=== PATIENT | male | born 1955 | race Caucasian/White ===

== ENCOUNTER 2017-11-08 21:10 | Inpatient (IN) ==
[2017-11-08] MEDS ORDERED: methylPREDNISolone 125 MG/2 ML VIAL IVP ONE (22:37)
[2017-11-08] MEDS ORDERED: Ipratropium/Albuterol Neb 3 ML IH ONE (22:38)
[2017-11-08] MEDS ORDERED: Naloxone 0.4 MG/ML INJ IVP PRN (22:39)
[2017-11-08] MEDS ORDERED: Ipratropium/Albuterol Neb 3 ML IH PRN (22:43)
[2017-11-08] MEDS ORDERED: Azithromycin 500 MG in D5% in Water 250 ML IVPB SCH (23:00)
[2017-11-08] MEDS: 0.9 % Sodium Chloride 1,000 ML IVC SCH (23:15)
[2017-11-08 23:29] LABS: BUN/Creatinine Ratio 19 (6-26); Blood Urea Nitrogen 10 mg/dL (8-23); Calcium 8.8 mg/dL (8.6-10.3); Carbon Dioxide 36 mEq/L (23-29); Chloride 82 mEq/L (98-107); Glucose 153 mg/dL (70-105); Osmolality,Calculated 258 (280-300); Potassium 3.9 mEq/L (3.5-5.1); Sodium 123 mEq/L (136-145); eGFR For African Americans > 60 (> 60); eGFR For Non-African Americans > 60 (> 60)
[2017-11-09] MEDS: methylPREDNISolone 125 MG/2 ML VIAL IVP SCH ×4 (00:03→18:29)
[2017-11-09] MEDS ORDERED: Lacri-Lube 3.5 GM TUBE BOTH EYES PRN (01:00)
--- NOTE | 2017-11-09 01:06 | Internal Med History&Physical ---
Date of Encounter: 11/08/17 Time of Encounter: 22:00 Assessment and Plan (1) Community acquired pneumonia Current visit: Yes Status: Acute CXR shows possible pneumonia. Pt has cough and increased SOB - Will treat him with azithromycin and rocephin Qualifiers: Laterality: unspecified laterality Qualified Code(s): J18.9 - Pneumonia, unspecified organism (2) COPD exacerbation Current visit: Yes Status: Acute Severe wheezes, on BiPAP - Cont cardiac and oxymetry monitoring - Solumendral 125 mg, Duoneb 9ml, MgSO4 2 g iv - Cont BiPAP. - High possibility of intubation (3) Hyponatremia Current visit: Yes Status: Acute Sodium 122. Will start 0.9 NS 100ml/hr. Closely monitor BMP. Goal of correction is < 8mEq in first 24 hours. (4) DVT prophylaxis Current visit: Yes Status: Acute Heparin SC Internal Medicine - H&P: HPI Chief complaint: SOB Admitted From: Intrahospital Transfer Plans for Post Hospital Care: Home History of present illness: Mr. Patrick is a 62 year old male with Hx of COPD, laryngeal cancer s/p radiation in 2013 transferred from [place] hospital for increased SOB and potential intubation. Pt has increased SOB and was treated as outpatient with doxycyclin and prednisone. His symptoms has improved as he has finished medication on Saturday. His symptoms got worse again since yesterday, with cough with clear to yellowish sputum. Pt denies fever. He went to [place] for SOB and CXR shows possible pneumonia. Pt has severe wheezes and labor breathing. His Flu test negative in [place]. Pt was placed on BiPAP. He was transferred to our hospital because he is considered possible intubation as labor breathing getting worse. Past Med Surg Social Fam HX - Past Medical History Medical history: COPD, peripheral artery disease Psychiatric history: no psych history - Social History Smoking Status: Current every day smoker Packs per day: 1 Smokeless Tobacco Status: No Alcohol use: none Drug use: none - Family History Mother History Unknown: Yes Internal Medicine - H&P: Meds Benzocaine/Menthol Pako [Cepacol Sore Throat Lozenge] 1 each MM Q2H PRN #20 lozenge 07/20/17 [Rx] Loratadine [Claritin] 10 mg PO DAILY #20 tablet 07/20/17 [Rx] predniSONE [Prednisone] 50 mg PO DAILY #5 tablet 07/20/17 [Rx] 3 Allergy/AdvReac Type Severity Reaction Status Date / Time No Known Allergies Allergy Verified 07/20/17 19:29 All Systems PM: A 10-system review of systems was performed and is negative for pertinent findings except as documented above in the HPI. - Constitutional Vitals: Temp Pulse Resp BP Pulse Ox 97.5 F L 80 12 126/96 98 11/08/17 22:06 11/09/17 00:00 11/09/17 01:03 11/09/17 01:03 11/09/17 01:03 General appearance: Present: A&O X 2, severe distress, answers questions appropriately - Head Head exam: Present: atraumatic, normocephalic - Eye Eye exam: Present: PERRL, conjuntiva pink, sclera anicteric Pupils: Present: PERRL - Neck Neck exam general surgery: Present: supple, trachea midline. Absent: lymphadenopathy - Respiratory Respiratory exam: Present: CTAB, wheezes (B/L diffused inspiratory and expiratory wheezes. Air move is very poor). Absent: accessory muscle use, rales , rhonchi - Cardiovascular Cardiovascular exam: Present: RRR, +S1, +S2. Absent: diastolic murmur, gallop, rubs, systolic murmur - GI/Abdominal GI/Abdominal exam: Present: normal bowel sounds, soft, no peritoneal signs. Absent: distended, tenderness - Extremities Exam Extremities exam: Present: warm, radial pulses palpable and symmetrical. Absent : calf tenderness, cyanotic, pedal edema - Neurological Exam Neurological exam: Present: CN II-XII intact, oriented X3, no focal deficits. Absent: pronater drift, facial droop, speech deficit - Skin Skin exam: Present: dry, intact Internal Med - H&P Results - Labs CBC & Chem 7: 11/08/17 23:00 Labs: BMP 11/08/17 23:00 Sodium 123 L Potassium 3.9 Chloride 82 L Carbon Dioxide 36 H BUN 10 Creatinine 0.54 L Glucose 153 H Calcium 8.8 - EKG Data -: EKG Interpreted by Myself EKG shows normal: sinus rhythm Rate: normal
--- NOTE | 2017-11-09 01:09 | Event Note ---
Date of Encounter: 11/09/17 Time of Encounter: 00:30 Pt has increased labor breathing and AMS. Decision is made to intubate pt. Pt has difficulr airway. Intubation was successful by TECHNICAL WRITING LEAD/MGR on third trial. B/L breath sound well. will order CXR to confirm the position of ETT. Place pt on sedation with versed and fentanyl drip. Consult critical care.
[2017-11-09] MEDS ORDERED: 0.9 % Sodium Chloride 500 ML ONE (01:49)
[2017-11-09] MEDS ORDERED: 0.9 % Sodium Chloride 500 ML IVC ONE ×2 (01:50→02:02)
[2017-11-09 02:25] LABS: ABG Base Excess 9 mEq/L (-2 to 3); ABG HCO3 36 mEq/L (21-27); ABG Oxygen Saturation 100 % (95-98); ABG PCO2 61 mmHg (35-45); ABG PH 7.38 pH Units (7.32-7.45); ABG PO2 472 mmHg (85-104); ABG TCO2 38 mEq/L (20-26); Blood Gas Modality VC; Blood Gas PEEP 5 cm H2O; Blood Gas Respiration Rate 12; Blood Gas VT 500 cc
[2017-11-09 03:23] LABS: Hematocrit 34.6 % (37.5-50.1); Hemoglobin 11.7 g/dL (12.9-16.9); Immature Granulocytes % 0.6 % (0-4); Lymphocytes # 0.2 K/mcL (0.6-4.6); Lymphocytes % 2.3 %; Mean Corpuscular HGB Conc 33.8 g/dL (31.6-35.5); Mean Corpuscular Hemoglobin 27.2 pg (28.0-33.3); Mean Corpuscular Volume 80.5 fL (83.0-100.0); Mean Platelet Volume 9.4 fL (9.4-12.4); Monocytes # 0.1 K/mcL (0.0-1.3); Monocytes % 0.7 %; Neutrophils # 7.8 K/mcL (1.6-8.9); Platelet Count 251 K/mcL (140-400); Red Cell Distribution Width 15.1 % (11.5-14.5); Segmented Neutrophils % 96.4 %
[2017-11-09 03:38] LABS: BUN/Creatinine Ratio 17 (6-26); Blood Urea Nitrogen 10 mg/dL (8-23); Carbon Dioxide 34 mEq/L (23-29); Chloride 85 mEq/L (98-107); Glucose 195 mg/dL (70-105); Osmolality,Calculated 260 (280-300); Potassium 3.6 mEq/L (3.5-5.1); Sodium 123 mEq/L (136-145); eGFR For African Americans > 60 (> 60); eGFR For Non-African Americans > 60 (> 60)
[2017-11-09] MEDS: Ipratropium/Albuterol Neb 3 ML IH SCH ×4 (04:19→21:50)
[2017-11-09 04:29] LABS: Platelet Estimate Normal (Normal)
--- NOTE | 2017-11-09 04:41 | Event Note ---
Date of Encounter: 11/09/17 Time of Encounter: 04:00 Pt was found not respond properly (not follow command to open eyes) even w/o sedation. He was found unequal pupils (Rt side enlarged and left side needle like). Pt move 4 limbs on stimulation but not follow commands. Concern for hemorrhage/cerebral edema. Stat CT head done, result is negative. Called neurology consult Dr oPnce and discussed with him on phone. As CT head negative, he recommend continue supportive treatment and treat pneumonia and COPD. No further urgent test at this point. Will cont current treatment and closely monitor pt.
[2017-11-09 04:58] LABS: ABG Base Excess 11 mEq/L (-2 to 3); ABG HCO3 36 mEq/L (21-27); ABG Oxygen Saturation 93 % (95-98); ABG PCO2 54 mmHg (35-45); ABG PH 7.44 pH Units (7.32-7.45); ABG PO2 65 mmHg (85-104); ABG TCO2 38 mEq/L (20-26); Blood Gas Modality VC; Blood Gas PEEP 5 cm H2O; Blood Gas Respiration Rate 12; Blood Gas VT 500 cc
[2017-11-09] MEDS: Lacri-Lube 3.5 GM TUBE BOTH EYES SCH ×5 (05:13→21:38)
[2017-11-09] MEDS: *HR* Heparin 5,000 UNIT/ML VIAL SQ SCH ×2 (05:16→18:27)
[2017-11-09] MEDS: cefTRIAXone 1,000 MG in Water for inj. (sterile) 10 ML IVP SCH (09:04)
--- NOTE | 2017-11-09 09:04 | Neurology - Consult Note ---
Date of Encounter: 11/09/17 Time of Encounter: 08:59 Assessment and Plan (1) Anisocoria Current Visit: Yes Status: Acute Patient is a 62 years old man with worsening COPD exacerbation and possible pneumonia who developed significantly unequal pupils while being treated for COPD exacerbation prior to mechanical ventilation. This was also associated with reduced level of consciousness but no focal weakness reported. Initial CT of head was reported no acute intracranial abnormality. Currently, the patient' s mental status improved and he is able to follow verbal commands and there is no focal weakness. The pupil asymmetry is still present and the size difference is greater than 2mm. SPECIAL PROCEDURES NURSE pathology such as brain stem infarct, cerebral aneurysm , carotid artery disease can cause an equal pupils acutely, in this case, brain stem infarct is unlikely. Patient's is unsure of any preexisting eye condition that can be responsible. Will recommend CTA of brain and neck to assess possibility of cerebral aneurysm or carotid artery disease, at time physiological anisocoria can be amplified by provoking medical conditions and/or medication effects. Please continue medical and supportive care. History of Present Illness Chief complaint: unequal pupiles and reduced level of consciousness. HPI: Mr. Patrick is a 62 year old male with COPD exacerbation, possible community pneumonia, who was transferred from [facility] due to worsening SOB requiring mechanical ventilation. Neurology was consulted due to the patient being found to have unequal pupils right side larger than the left side. Patient also developed reduced level of consciousness but was able to move all extremities per requesting physician. The right pupil is around 5-6mm in diameter and left side is pinpoint like. Initial CT of head was read as negative for any acute changes. MRI of brain done last month showed no acute intracranial abnormality. AT the time of this interview, his mental status appears improved. This was also confirmed by the ICU team. Patient was sleeping and then after stimulation he woke up and is able to follow commands. No focal weakness noted. Hand special education science teacher are equal. The both eyes are reactive to light, right 5mm and left 3mm in sizes Past Med Surg Social Fam HX - Past Medical History Medical history: COPD, peripheral artery disease Psychiatric history: no psych history - Social History Smoking Status: Current every day smoker Packs per day: 1 Smokeless Tobacco Status: No Alcohol use: none Drug use: none - Family History Mother History Unknown: Yes Medications and Allergies Benzocaine/Menthol Pako [Cepacol Sore Throat Lozenge] 1 each MM Q2H PRN #20 lozenge 07/20/17 [Rx] Loratadine [Claritin] 10 mg PO DAILY #20 tablet 07/20/17 [Rx] predniSONE [Prednisone] 50 mg PO DAILY #5 tablet 07/20/17 [Rx] 3 Allergy/AdvReac Type Severity Reaction Status Date / Time No Known Allergies Allergy Verified 07/20/17 19:29 All Systems: A 10-system review of systems was performed and is negative for pertinent findings except as documented above in the HPI. Physical Examination - Vital Signs Vital Signs: Initial Vital Signs Temp Pulse Resp BP Pulse Ox 97.5 F L 86 32 206/118 94 11/08/17 22:06 11/08/17 22:06 11/08/17 22:06 11/08/17 22:06 11/08/17 22:06 - Constitutional General appearance: chronically ill - Neurologic Sensorimotor examination: other (Grossly intact) Detailed motor examination: grossly full strength in all extremities (After patient woke up, he was able to squeeze hands bilaterally, equal power. Is able to lift both legs off the bed. strength at least 4+/5) Detailed sensory examination: other (Grossly intact) Posture: other (NOne) Reflexes: Biceps: 2+, Triceps: 2+, Brachioradialis: 2+, Patella: 2+, Achilles: 2 + Mental Status Examination: drowsy, opens eyes to voice, opens eyes to noxious stimulation, makes eye contact, follows simple commands Cranial nerve examination: PERRL (right pupile 5mm and left side 3mm in diameter , both reactive to light stimulation. ), EOMI (No gross defect. ), visual dickson intact (uanble to assess due to presence of reduced level of consciousness), corneal reflexes brisk symmetrically, sensory to face intact ( intact), mastication intact (Intact), no facial asymmetry is present, no dysarthria (Unable to assess speech), soft palate elevates bilaterally upon phonation (Unable to assess), gag reflex intact, flexes SCM and trapezius muscles symmetrically with full power (Unable to assess), tongue protrudes midline (Unable to assess) Results - Laboratory Findings CBC and BMP: 11/09/17 03:12 11/09/17 03:12 Abnormal lab findings: Abnormal lab results Hgb 11.7 g/dL (12.9-16.9) L 11/09/17 03:12 Hct 34.6 % (37.5-50.1) L 11/09/17 03:12 MCV 80.5 fL (83.0-100.0) L 11/09/17 03:12 MCH 27.2 pg (28.0-33.3) L 11/09/17 03:12 RDW 15.1 % (11.5-14.5) H 11/09/17 03:12 Lymphocytes # 0.2 K/mcL (0.6-4.6) L 11/09/17 03:12 ABG pCO2 54 mmHg (35-45) H 11/09/17 04:55 ABG pO2 65 mmHg (85-104) L D 11/09/17 04:55 ABG HCO3 36 mEq/L (21-27) H 11/09/17 04:55 ABG Total CO2 38 mEq/L (20-26) H 11/09/17 04:55 ABG O2 Saturation 93 % (95-98) L 11/09/17 04:55 ABG Base Excess 11 mEq/L (-2 to 3) H 11/09/17 04:55 Sodium 123 mEq/L (136-145) L 11/09/17 03:12 Chloride 85 mEq/L (98-107) L 11/09/17 03:12 Carbon Dioxide 34 mEq/L (23-29) H 11/09/17 03:12 Creatinine 0.58 mg/dL (0.70-1.30) L 11/09/17 03:12 Glucose 195 mg/dL (70-105) H 11/09/17 03:12 Calculated Osmolality 260 (280-300) L 11/09/17 03:12 Calcium 8.0 mg/dL (8.6-10.3) L 11/09/17 03:12 Consult Discharge Plan - Plan Referrals: Rigo Marte [Primary Care Provider] -
[2017-11-09] MEDS: Chlorhexidine Rinse 15 ML MOUTHWASH MM SCH ×2 (09:05→20:00)
[2017-11-09] MEDS: Dexamethasone 10 MG/ML VIAL IVP SCH (09:05)
[2017-11-09] MEDS: Pantoprazole 40 MG VIAL IVP SCH (09:05)
[2017-11-09] MEDS: 0.9 % Sodium Chloride 1,000 ML IVC SCH ×3 (09:18→22:15)
[2017-11-09 09:37] LABS: Adenovirus Not Detected (Not Detect); Bordetella Pertussis Not Detected (Not Detect); Chlamydophila pneumoniae Not Detected (Not Detect); Coronavirus 229E Not Detected (Not Detect); Coronavirus HKU1 Not Detected (Not Detect); Coronavirus NL63 Not Detected (Not Detect); Coronavirus OC43 Not Detected (Not Detect); Human Metapneumovirus Not Detected (Not Detect); Human Rhinovirus/Enterovirus Not Detected (Not Detect); Influenza A Subtype 2009 H1 Not Detected (Not Detect); Influenza A Untypeable Not Detected (Not Detect); Influenza B Not Detected (Not Detect); Mycoplasma pneumoniae Not Detected (Not Detect); Parainfluenza Virus 1 Not Detected (Not Detect); Parainfluenza Virus 2 Not Detected (Not Detect); Parainfluenza Virus 3 Not Detected (Not Detect); Parainfluenza Virus 4 Not Detected (Not Detect); Respiratory Syncytial Virus Not Detected (Not Detect)
[2017-11-09 12:20] LABS: BUN/Creatinine Ratio 17 (6-26); Blood Urea Nitrogen 8 mg/dL (8-23); Calcium 8.2 mg/dL (8.6-10.3); Carbon Dioxide 34 mEq/L (23-29); Chloride 90 mEq/L (98-107); Glucose 117 mg/dL (70-105); Osmolality,Calculated 265 (280-300); Potassium 3.8 mEq/L (3.5-5.1); Sodium 128 mEq/L (136-145); eGFR For African Americans > 60 (> 60); eGFR For Non-African Americans > 60 (> 60)
[2017-11-09] MEDS: Insulin LISPRO 300 UNITS/3 ML VIAL SQ SCH ×3 (12:59→20:00)
--- NOTE | 2017-11-09 13:23 | Pulmonology Consult Note ---
Date of Encounter: 11/10/17 Time of Encounter: 07:00 Assessment and Plan (1) Acute and chronic respiratory failure Current Visit: Yes Status: Acute Patient has Acute on chronic hypercapnic respiratory secondary to COPD exacerbation complicated by suspected pneumonia Qualifiers: Respiratory failure complication: hypoxia and hypercapnia Qualified Code(s) : J96.21 - Acute and chronic respiratory failure with hypoxia; J96.22 - Acute and chronic respiratory failure with hypercapnia; J96.22 - Acute and chronic respiratory failure with hypercapnia; J96.22 - Acute and chronic respiratory failure with hypercapnia (2) COPD exacerbation Current Visit: Yes Status: Acute Patient has COPD to continue Bronchodilators and steroids . To continue mechanical ventilation adjusted TV and RR low tidal around 7 ml gas exchange is adequate will need to be extubated to BIPAP when ready . Patient had traumatic intubation will give 6 doses of Dexamethasone will need to check for air leak before extubation high chance of post extubation stridor. (3) Anisocoria Current Visit: Yes Status: Acute Patient has unequal pupil with no focal exam concern for aneurysmal bleed but CTA of Neck and Brain didnt show any evidence of aneurysm , has some carotid artery stenosis . Appreciate neurology consult . (4) Community acquired pneumonia Current Visit: Yes Status: Acute To continue ceftriaxone and levofloxacin to follow sputum cultures and blood cultures Qualifiers: Laterality: unspecified laterality Qualified Code(s): J18.9 - Pneumonia, unspecified organism (5) Hyponatremia Current Visit: Yes Status: Acute Most likely volume depletion improved with fluids (6) DVT prophylaxis Current Visit: Yes Status: Acute To continue Heparin History of Present Illness Consult date: 11/09/17 Requesting physician: Golden Izaguirre Reason for consult: COPD, pneumonia Chief complaint: Shortness of breadth History of present illness: 62 year old male with past medical history of COPD usually gets his care at the [facility] was found to have increased shortness of breadth and cough , sputum production according to chart review he didnt complain of any flu like symptoms , denied any pedal edema was admitted acute on chronic hypercapnic respiratory failure first tried on BIPAP at the [facility] was transferred [facility] for need of intubation and mechanical ventilation initially did well on BIPAP has to be urgently intubated had a difficult intubation patient has h/o laryngeal Ca with ? radiation therapy it was traumatic intubation sucessful on the third attempt . Pulmonary was consulted to manage his intensive care needs . Past Med Surg Social Fam HX - Past Medical History Medical history: COPD, peripheral artery disease Psychiatric history: no psych history - Social History Smoking Status: Current every day smoker Packs per day: 1 Smokeless Tobacco Status: No Alcohol use: none Drug use: none - Family History Mother History Unknown: Yes Medications and Allergies Albuterol Neb [Proventil Neb] 2.5 mg IH Q4HR 11/09/17 [History] Aspirin Enteric Coated [Aspirin EC] 81 mg PO DAILY 11/09/17 [History] Cilostazol [Pletal] 100 mg PO BID 11/09/17 [History] Esomeprazole Magnesium [Nexium] 20 mg PO DAILY 11/09/17 [History] Fluticasone/Salmeterol [Advair 250-50 Diskus] 2 puff IH BID 11/09/17 [History] Levothyroxine [Synthroid] 100 mcg PO DAILY 11/09/17 [History] Tiotropium [place] [Spiriva Respimat] 1 puff IH DAILY 11/09/17 [History] 3 Allergy/AdvReac Type Severity Reaction Status Date / Time No Known Allergies Allergy Verified 07/20/17 19:29 ROS unobtainable: due to endotracheal tube All Systems: A 10-system review of systems was performed and is negative for pertinent findings except as documented above in the HPI. Physical Examination Vital Signs: Vital Signs, Last 4 Hours Temp Pulse Resp BP Pulse Ox 11/09/17 12:40 86 11/09/17 12:00 97.7 F 74 12 122/78 98 11/09/17 11:30 97.7 F 11/09/17 11:00 16 134/86 97 11/09/17 10:30 77 13 134/86 97 11/09/17 09:30 76 12 101/73 96 Auscultation: bilateral: wheezes non-focal exam, unable to assess due to mental status, other (he follows commands barely his pupil unequal and reactive ) Ventilator Settings Ventilator Settings: Ventilator Settings, Last 8 Hours Ventilator Mode VC+ Ventilator Mode VC+ Ventilator Mode VC+ Ventilator Mode VC+ Ventilator Mode VC+ Ventilator Mode VC+ Ventilator Mode VC+ Ventilator Mode VC+ Ventilator Mode VC+ Ventilator Mode VC+ Ventilator Mode VC+ Ventilator Tidal Volume 500 Setting Ventilator Tidal Volume 500 Setting Ventilator Tidal Volume 500 Setting Ventilator Tidal Volume 500 Setting Ventilator Tidal Volume 500 Setting Ventilator Tidal Volume 500 Setting Ventilator Tidal Volume 500 Setting Ventilator Tidal Volume 500 Setting Ventilator Tidal Volume 500 Setting Ventilator Tidal Volume 500 Setting Ventilator Tidal Volume 500 Setting Ventilator Respiratory Rate 12 Setting Ventilator Respiratory Rate 12 Setting Ventilator Respiratory Rate 12 Setting Ventilator Respiratory Rate 12 Setting Ventilator Respiratory Rate 12 Setting Ventilator Respiratory Rate 12 Setting Ventilator Respiratory Rate 12 Setting Ventilator Respiratory Rate 12 Setting Ventilator Respiratory Rate 12 Setting Ventilator Respiratory Rate 12 Setting Ventilator Respiratory Rate 12 Setting Actual Respiratory Rate 12 Actual Respiratory Rate 16 Actual Respiratory Rate 12 Actual Respiratory Rate 12 Actual Respiratory Rate 12 Actual Respiratory Rate 12 Actual Respiratory Rate 12 Actual Respiratory Rate 12 Actual Respiratory Rate 12 Actual Respiratory Rate 12 Actual Respiratory Rate 12 Positive End Expiratory 5 Pressure Positive End Expiratory 5 Pressure Positive End Expiratory 5 Pressure Positive End Expiratory 5 Pressure Positive End Expiratory 5 Pressure Positive End Expiratory 5 Pressure Positive End Expiratory 5 Pressure Positive End Expiratory 5 Pressure Positive End Expiratory 5 Pressure Positive End Expiratory 5 Pressure Positive End Expiratory 5 Pressure Peak Inspiratory Airway 19 Pressure Peak Inspiratory Airway 21 Pressure Peak Inspiratory Airway 20 Pressure Peak Inspiratory Airway 20 Pressure Peak Inspiratory Airway 19 Pressure Peak Inspiratory Airway 19 Pressure Peak Inspiratory Airway 20 Pressure Peak Inspiratory Airway 21 Pressure Peak Inspiratory Airway 21 Pressure Results - Laboratory Findings CBC and BMP: 11/10/17 02:38 11/10/17 02:38 ABG ABG pH 7.44 pH Units (7.32-7.45) 11/09/17 04:55 ABG pCO2 54 mmHg (35-45) H 11/09/17 04:55 ABG pO2 65 mmHg (85-104) L D 11/09/17 04:55 ABG O2 Saturation 93 % (95-98) L 11/09/17 04:55 Abnormal lab findings: Abnormal lab results Hgb 11.7 g/dL (12.9-16.9) L 11/09/17 03:12 Hct 34.6 % (37.5-50.1) L 11/09/17 03:12 MCV 80.5 fL (83.0-100.0) L 11/09/17 03:12 MCH 27.2 pg (28.0-33.3) L 11/09/17 03:12 RDW 15.1 % (11.5-14.5) H 11/09/17 03:12 Lymphocytes # 0.2 K/mcL (0.6-4.6) L 11/09/17 03:12 ABG pCO2 54 mmHg (35-45) H 11/09/17 04:55 ABG pO2 65 mmHg (85-104) L D 11/09/17 04:55 ABG HCO3 36 mEq/L (21-27) H 11/09/17 04:55 ABG Total CO2 38 mEq/L (20-26) H 11/09/17 04:55 ABG O2 Saturation 93 % (95-98) L 11/09/17 04:55 ABG Base Excess 11 mEq/L (-2 to 3) H 11/09/17 04:55 Sodium 128 mEq/L (136-145) L 11/09/17 11:36 Chloride 90 mEq/L (98-107) L 11/09/17 11:36 Carbon Dioxide 34 mEq/L (23-29) H 11/09/17 11:36 Creatinine 0.46 mg/dL (0.70-1.30) L 11/09/17 11:36 Glucose 117 mg/dL (70-105) H 11/09/17 11:36 Calculated Osmolality 265 (280-300) L 11/09/17 11:36 Calcium 8.2 mg/dL (8.6-10.3) L 11/09/17 11:36 - Clinical Findings Intake & Output: Intake & Output 11/08/17 11/09/17 11/09/17 23:59 07:59 15:59 Intake Total 0 / 0 800 / 800 1010 / 1010 Output Total 0 / 0 500 / 500 650 / 650 Balance 0 / 0 300 / 300 360 / 360 Weight 62 kg Consult Discharge Plan - Plan Referrals: Rigo Marte [Primary Care Provider] -
[2017-11-09] MEDS: Levofloxacin 750 MG/150 ML 750 MG/150 ML BAG IVPB SCH (18:37)
[2017-11-10] MEDS: Insulin LISPRO 300 UNITS/3 ML VIAL SQ SCH ×6 (00:29→21:07)
[2017-11-10] MEDS: Lacri-Lube 3.5 GM TUBE BOTH EYES SCH ×6 (00:29→21:07)
[2017-11-10] MEDS: methylPREDNISolone 125 MG/2 ML VIAL IVP SCH ×2 (00:36→05:12)
[2017-11-10] MEDS ORDERED: Albumin 25% 25gram/100mL 25 GM/100 ML IV.SOLN IVPB ONE ×3 (01:30→05:00)
[2017-11-10 03:02] LABS: Hematocrit 31.7 % (37.5-50.1); Hemoglobin 10.9 g/dL (12.9-16.9); Immature Granulocytes % 0.5 % (0-4); Lymphocytes # 0.3 K/mcL (0.6-4.6); Lymphocytes % 2.1 %; Mean Corpuscular HGB Conc 34.4 g/dL (31.6-35.5); Mean Corpuscular Hemoglobin 27.3 pg (28.0-33.3); Mean Corpuscular Volume 79.3 fL (83.0-100.0); Mean Platelet Volume 9.7 fL (9.4-12.4); Monocytes # 0.2 K/mcL (0.0-1.3); Monocytes % 1.9 %; Neutrophils # 11.4 K/mcL (1.6-8.9); Platelet Count 258 K/mcL (140-400); Red Cell Distribution Width 15.8 % (11.5-14.5); Segmented Neutrophils % 95.5 %
[2017-11-10 03:17] LABS: BUN/Creatinine Ratio 22 (6-26); Blood Urea Nitrogen 13 mg/dL (8-23); Carbon Dioxide 30 mEq/L (23-29); Chloride 97 mEq/L (98-107); Glucose 123 mg/dL (70-105); Osmolality,Calculated 275 (280-300); Potassium 3.8 mEq/L (3.5-5.1); Sodium 132 mEq/L (136-145); eGFR For African Americans > 60 (> 60); eGFR For Non-African Americans > 60 (> 60)
[2017-11-10] MEDS: Ipratropium/Albuterol Neb 3 ML IH SCH ×4 (03:45→23:08)
[2017-11-10 04:14] LABS: ABG Base Excess 8 mEq/L (-2 to 3); ABG HCO3 32 mEq/L (21-27); ABG Oxygen Saturation 98 % (95-98); ABG PCO2 42 mmHg (35-45); ABG PH 7.49 pH Units (7.32-7.45); ABG PO2 94 mmHg (85-104); ABG TCO2 34 mEq/L (20-26); Blood Gas Modality VC; Blood Gas PEEP 5 cm H2O; Blood Gas Respiration Rate 12; Blood Gas VT 500 cc
[2017-11-10] MEDS: *HR* Heparin 5,000 UNIT/ML VIAL SQ SCH ×2 (05:12→18:29)
[2017-11-10] MEDS ORDERED: Scopolamine Patch 1.5 MG PATCH.TD72 TD ONE (08:05)
[2017-11-10] MEDS: Levofloxacin 750 MG/150 ML 750 MG/150 ML BAG IVPB SCH (08:29)
[2017-11-10] MEDS: Pantoprazole 40 MG VIAL IVP SCH (08:29)
[2017-11-10] MEDS: Chlorhexidine Rinse 15 ML MOUTHWASH MM SCH ×2 (08:29→21:01)
[2017-11-10] MEDS: cefTRIAXone 1,000 MG in Water for inj. (sterile) 10 ML IVP SCH (08:30)
[2017-11-10] MEDS: Nicotine 21 MG PATCH.TD24 TD SCH (08:37)
[2017-11-10] MEDS: Dexamethasone 10 MG/ML VIAL IVP SCH (08:40)
--- NOTE | 2017-11-10 10:59 | Pulmonology Progress Note ---
Date of Encounter: 11/11/17 Time of Encounter: 08:00 Assessment and Plan (1) Acute and chronic respiratory failure Current Visit: Yes Status: Acute Secondary to COPD exacerbation complicated by community acquired pneumonia . Will drop the Tidal Volume to 450 Qualifiers: Respiratory failure complication: hypoxia and hypercapnia Qualified Code(s) : J96.21 - Acute and chronic respiratory failure with hypoxia; J96.22 - Acute and chronic respiratory failure with hypercapnia; J96.22 - Acute and chronic respiratory failure with hypercapnia; J96.22 - Acute and chronic respiratory failure with hypercapnia (2) COPD exacerbation Current Visit: Yes Status: Acute To continue bronchodilators and steroids could not extubate today because of airway edema due to traumatic intubation. (3) Anisocoria Current Visit: Yes Status: Acute Still there is a slight difference in pupils so far as work up is negative will get CT chest when stable to rule reasons like pancoast tumour (4) Community acquired pneumonia Current Visit: Yes Status: Acute To continue Ceftriaxone and levofloxacin so far sputum culture is negative Qualifiers: Laterality: unspecified laterality Qualified Code(s): J18.9 - Pneumonia, unspecified organism (5) Hyponatremia Current Visit: Yes Status: Acute After Volume repletion sodium is getting better . (6) DVT prophylaxis Current Visit: Yes Status: Acute Heparin Subjective Principal diagnosis: COPD Exacerbation Interval history: Patient is look alert following commands no focal neurological deficits , denies any chest pain or tightness lot of secretions coming from the mouth . No other acute events overnight Objective PUL Vital signs: Last Vital Signs Temp 98.6 F 11/10/17 07:00 Pulse 84 11/10/17 10:00 Resp 14 11/10/17 10:00 BP 146/80 11/10/17 10:00 Pulse Ox 99 11/10/17 10:00 Auscultation: bilateral: wheezes (mimimal scattered wheezes) Ventilator Settings Ventilator Settings: Ventilator Settings, Last 8 Hours Ventilator Mode VC+ Ventilator Mode VC+ Ventilator Mode VC+ Ventilator Mode VC+ Ventilator Mode VC+ Ventilator Mode VC+ Ventilator Mode VC+ Ventilator Mode VC+ Ventilator Mode VC+ Ventilator Mode VC+ Ventilator Mode VC+ Ventilator Mode VC+ Ventilator Mode VC+ Ventilator Tidal Volume 500 Setting Ventilator Tidal Volume 500 Setting Ventilator Tidal Volume 500 Setting Ventilator Tidal Volume 500 Setting Ventilator Tidal Volume 500 Setting Ventilator Tidal Volume 500 Setting Ventilator Tidal Volume 500 Setting Ventilator Tidal Volume 500 Setting Ventilator Tidal Volume 500 Setting Ventilator Tidal Volume 500 Setting Ventilator Tidal Volume 500 Setting Ventilator Tidal Volume 500 Setting Ventilator Tidal Volume 500 Setting Ventilator Respiratory Rate 12 Setting Ventilator Respiratory Rate 12 Setting Ventilator Respiratory Rate 12 Setting Ventilator Respiratory Rate 12 Setting Ventilator Respiratory Rate 12 Setting Ventilator Respiratory Rate 12 Setting Ventilator Respiratory Rate 12 Setting Ventilator Respiratory Rate 12 Setting Ventilator Respiratory Rate 12 Setting Ventilator Respiratory Rate 12 Setting Ventilator Respiratory Rate 12 Setting Ventilator Respiratory Rate 12 Setting Ventilator Respiratory Rate 12 Setting Actual Respiratory Rate 14 Actual Respiratory Rate 17 Actual Respiratory Rate 19 Actual Respiratory Rate 20 Actual Respiratory Rate 20 Actual Respiratory Rate 21 Actual Respiratory Rate 13 Actual Respiratory Rate 16 Actual Respiratory Rate 14 Actual Respiratory Rate 19 Actual Respiratory Rate 21 Actual Respiratory Rate 20 Positive End Expiratory 5 Pressure Positive End Expiratory 5 Pressure Positive End Expiratory 5 Pressure Positive End Expiratory 5 Pressure Positive End Expiratory 5 Pressure Positive End Expiratory 5 Pressure Positive End Expiratory 5 Pressure Positive End Expiratory 5 Pressure Positive End Expiratory 5 Pressure Positive End Expiratory 5 Pressure Positive End Expiratory 5 Pressure Positive End Expiratory 5 Pressure Positive End Expiratory 5 Pressure Peak Inspiratory Airway 18 Pressure Peak Inspiratory Airway 19 Pressure Peak Inspiratory Airway 20 Pressure Peak Inspiratory Airway 16 Pressure Peak Inspiratory Airway 17 Pressure Peak Inspiratory Airway 17 Pressure Peak Inspiratory Airway 17 Pressure Peak Inspiratory Airway 17 Pressure Peak Inspiratory Airway 18 Pressure Peak Inspiratory Airway 18 Pressure Peak Inspiratory Airway 11 Pressure Peak Inspiratory Airway 15 Pressure Results - Laboratory Findings CBC and BMP: 11/11/17 03:29 11/11/17 03:29 ABG ABG pH 7.49 pH Units (7.32-7.45) H 11/10/17 04:11 ABG pCO2 42 mmHg (35-45) 11/10/17 04:11 ABG pO2 94 mmHg (85-104) 11/10/17 04:11 ABG O2 Saturation 98 % (95-98) 11/10/17 04:11 Abnormal lab findings: Abnormal lab results WBC 12.0 K/mcL (4.3-11.1) H 11/10/17 02:38 RBC 4.00 M/mcL (4.19-5.50) L 11/10/17 02:38 Hgb 10.9 g/dL (12.9-16.9) L 11/10/17 02:38 Hct 31.7 % (37.5-50.1) L 11/10/17 02:38 MCV 79.3 fL (83.0-100.0) L 11/10/17 02:38 MCH 27.3 pg (28.0-33.3) L 11/10/17 02:38 RDW 15.8 % (11.5-14.5) H 11/10/17 02:38 Neutrophils # 11.4 K/mcL (1.6-8.9) H 11/10/17 02:38 Lymphocytes # 0.3 K/mcL (0.6-4.6) L 11/10/17 02:38 ABG pH 7.49 pH Units (7.32-7.45) H 11/10/17 04:11 ABG HCO3 32 mEq/L (21-27) H 11/10/17 04:11 ABG Total CO2 34 mEq/L (20-26) H 11/10/17 04:11 ABG Base Excess 8 mEq/L (-2 to 3) H 11/10/17 04:11 Sodium 132 mEq/L (136-145) L 11/10/17 02:38 Chloride 97 mEq/L (98-107) L 11/10/17 02:38 Carbon Dioxide 30 mEq/L (23-29) H 11/10/17 02:38 Creatinine 0.60 mg/dL (0.70-1.30) L 11/10/17 02:38 Glucose 123 mg/dL (70-105) H 11/10/17 02:38 POC Glucose 106 (58-89) H 11/10/17 00:07 Calculated Osmolality 275 (280-300) L 11/10/17 02:38 Calcium 8.0 mg/dL (8.6-10.3) L 11/10/17 02:38 - Microbiology Findings Microbiology Findings: Microbiology, Last 48 Hours 11/09/17 20:32 Sputum Culture - Preliminary Sputum 11/09/17 18:50 Legionella Antigen - Final Urine,[place] Streptococcus pneumoniae Antigen (M - Final - Clinical Findings Intake & Output: Intake & Output 11/09/17 11/10/17 11/10/17 23:59 07:59 15:59 Intake Total 2216 / 2216 1421 / 1421 194 / 194 Output Total 325 / 325 400 / 400 Balance 1891 / 1891 1021 / 1021 194 / 194 Weight 65 kg Consult Discharge Plan - Plan Referrals: Rigo Marte [Primary Care Provider] -
--- NOTE | 2017-11-10 13:40 | Neurology Progress Note ---
Date of Encounter: 11/10/17 Time of Encounter: 13:36 Assessment and Plan (1) Anisocoria Current Visit: Yes Status: Acute Likely physiological aggravated by medical conditions and/or medication side effects. Neurologically no evidence of cerebral aneurysm, carotid artery dissection, or critical ICA stenosis. The anisocoria improved after medical conditions improve. Still small difference in size of pupils but severity significantly improved. Anisocoria not associated with eye movement disorder, no pupillary reflex abnormality, unable to deduct which side of pupil is pathological. Other consideration would be to rule out pancoast tumor so CT of chest may help but will defer to medical team. From neurology perspective, no further testing will be recommended at this time. He may benefit from out patient ophthalmology consult to look for ophthalmological conditions can cause cause anisocoria. Thank you for the consultation and please call me if any questions. Subjective Principal diagnosis: Anisocoria Interval history: Patient seen and examined. He is much more alert today and is able to sit up and his mental status is intact. He denies headaches. he has no focal weakness. He completed CTA of head and neck and nothing significant in terms of possible causes for anisocoria. LEss than 60% ICA stenosis noted. No intervention necessary. Today the anisocoria significantly improved. Both eyes are reactive to light stimulation. Eye movements are full. The differences in sizes of pupils is about 1mm. Objective - Constitutional Vitals: Temp Pulse Resp BP Pulse Ox 98.6 F 87 17 149/82 100 11/10/17 07:00 11/10/17 12:00 11/10/17 12:00 11/10/17 12:00 11/10/17 12:00 - Neurological Exam Sensorimotor examination: Present: other (Grossly intact) Motor Examination: Present: grossly full strength in all extremities (moves all extremities) Motor examination - right side: 5/5: deltoids, biceps, triceps, wrist flexion, wrist extension, wrist closer, hip flexors, tibialis Anterior, quadriceps, toe extension (EHL), plantarflexion Motor examination - left side: 5/5: deltoids, biceps, triceps, wrist flexion, wrist extension, hip flexors, wrist closer, quadriceps, tibialis Anterior, toe extension (EHL), plantarflexion Sensation intact: Present: other (Grossly intact) Posture: Present: other (None) Reflexes: Biceps: 2+, Triceps: 2+, Brachioradialis: 2+, Patella: 2+, Achilles: 2 + Mental Status Examination: Present: awake, alert, follows commands appropriately , makes eye contact, follows simple commands Cranial nerve examination: Present: PERRL (Right pupil 4mm and left side 3 m, both are reactive to light stimulation), EOMI, corneal reflexes brisk symmetrically, sensory to face intact, mastication intact, no facial asymmetry is present, no dysarthria (Unable to assess speech), hearing is intact symmetrically (d), soft palate elevates bilaterally upon phonation (Unable to assess), gag reflex intact, flexes SCM and trapezius muscles symmetrically with full power (Unable to assess), tongue protrudes midline (Unable to assess) Results - Laboratory Findings CBC and BMP: 11/10/17 02:38 11/10/17 02:38 Abnormal lab findings: Abnormal lab results WBC 12.0 K/mcL (4.3-11.1) H 11/10/17 02:38 RBC 4.00 M/mcL (4.19-5.50) L 11/10/17 02:38 Hgb 10.9 g/dL (12.9-16.9) L 11/10/17 02:38 Hct 31.7 % (37.5-50.1) L 11/10/17 02:38 MCV 79.3 fL (83.0-100.0) L 11/10/17 02:38 MCH 27.3 pg (28.0-33.3) L 11/10/17 02:38 RDW 15.8 % (11.5-14.5) H 11/10/17 02:38 Neutrophils # 11.4 K/mcL (1.6-8.9) H 11/10/17 02:38 Lymphocytes # 0.3 K/mcL (0.6-4.6) L 11/10/17 02:38 ABG pH 7.49 pH Units (7.32-7.45) H 11/10/17 04:11 ABG HCO3 32 mEq/L (21-27) H 11/10/17 04:11 ABG Total CO2 34 mEq/L (20-26) H 11/10/17 04:11 ABG Base Excess 8 mEq/L (-2 to 3) H 11/10/17 04:11 Sodium 132 mEq/L (136-145) L 11/10/17 02:38 Chloride 97 mEq/L (98-107) L 11/10/17 02:38 Carbon Dioxide 30 mEq/L (23-29) H 11/10/17 02:38 Creatinine 0.60 mg/dL (0.70-1.30) L 11/10/17 02:38 Glucose 123 mg/dL (70-105) H 11/10/17 02:38 POC Glucose 106 (58-89) H 11/10/17 00:07 Calculated Osmolality 275 (280-300) L 11/10/17 02:38 Calcium 8.0 mg/dL (8.6-10.3) L 11/10/17 02:38 - Diagnostic Findings Additional findings: CT/CT angio neck IMPRESSION: 1. No high-grade stenosis or focal occlusion involving the intracranial vasculature. No evidence of a dissection involving the intracranial vasculature. No evidence of intracranial aneurysm. 2. Approximately 60% stenosis of proximal left internal carotid artery at left carotid bifurcation secondary to atherosclerotic disease. Less than 50% stenosis at right carotid bifurcation. Arthrosclerotic disease involving bilateral carotid systems. 3. Moderate stenosis of the origin of the bilateral vertebral arteries. Remainder of the vertebral arteries are unremarkable. 4. Paranasal sinus disease, and mastoid effusions in setting of intubation. 5. Nonspecific fluid and edema within upper retropharyngeal space, in setting of endotracheal tube and nasogastric tube. Possibility of infectious and/or inflammatory process is not excluded. No drainable abscess is identified. No evidence of cervical lymphadenopathy. 6. No acute intracranial abnormalities on a noncontrast head CT. Consult Discharge Plan - Plan Referrals: Rigo Marte [Primary Care Provider] -
[2017-11-11] MEDS: Lacri-Lube 3.5 GM TUBE BOTH EYES SCH ×7 (00:20→23:27)
[2017-11-11] MEDS: Insulin LISPRO 300 UNITS/3 ML VIAL SQ SCH ×7 (00:20→23:46)
[2017-11-11] MEDS: Ipratropium/Albuterol Neb 3 ML IH SCH ×4 (03:47→21:51)
[2017-11-11 03:59] LABS: Hematocrit 32.5 % (37.5-50.1); Hemoglobin 10.8 g/dL (12.9-16.9); Immature Granulocytes % 0.7 % (0-4); Lymphocytes # 0.4 K/mcL (0.6-4.6); Mean Corpuscular HGB Conc 33.2 g/dL (31.6-35.5); Mean Corpuscular Hemoglobin 26.6 pg (28.0-33.3); Mean Platelet Volume 9.5 fL (9.4-12.4); Monocytes # 0.7 K/mcL (0.0-1.3); Monocytes % 5.8 %; Neutrophils # 11.1 K/mcL (1.6-8.9); Nucleated Red Blood Cells 0.2 /100 WBC (0); Platelet Count 267 K/mcL (140-400); Red Blood Count 4.06 M/mcL (4.19-5.50); Red Cell Distribution Width 15.9 % (11.5-14.5); Segmented Neutrophils % 90.5 %
[2017-11-11 04:30] LABS: BUN/Creatinine Ratio 29 (6-26); Blood Urea Nitrogen 16 mg/dL (8-23); Calcium 8.6 mg/dL (8.6-10.3); Carbon Dioxide 30 mEq/L (23-29); Chloride 97 mEq/L (98-107); Glucose 112 mg/dL (70-105); Osmolality,Calculated 276 (280-300); Potassium 3.7 mEq/L (3.5-5.1); Sodium 132 mEq/L (136-145); eGFR For African Americans > 60 (> 60); eGFR For Non-African Americans > 60 (> 60)
[2017-11-11 05:08] LABS: ABG Base Excess 8 mEq/L (-2 to 3); ABG HCO3 33 mEq/L (21-27); ABG Oxygen Saturation 97 % (95-98); ABG PCO2 43 mmHg (35-45); ABG PH 7.48 pH Units (7.32-7.45); ABG PO2 89 mmHg (85-104); ABG TCO2 34 mEq/L (20-26); Blood Gas Modality VC; Blood Gas PEEP 5 cm H2O; Blood Gas Respiration Rate 12; Blood Gas VT 450 cc
[2017-11-11] MEDS: *HR* Heparin 5,000 UNIT/ML VIAL SQ SCH ×2 (05:48→17:52)
--- NOTE | 2017-11-11 07:09 | Pulmonology Progress Note ---
<Michoacano Palacios - Last Filed: 11/11/17 11:03> Date of Encounter: 11/11/17 Time of Encounter: 07:09 Assessment and Plan (1) Acute and chronic respiratory failure Current Visit: Yes Status: Acute Patient's respiratory failure likely associated with COPD exacerbation. His chest x-ray demonstrates no acute findings. He was continued on Rocephin and Levaquin per sputum culture. We will likely de-escalate these as these are likely oral karolina. The patient is doing well on the ventilator and we will likely extubate the patient today. Given the patient's traumatic intubation associated with radiation of the upper airway that was bloody during the intubation, we will likely perform extubation in the operating room with anesthesia and ENT present. Patient currently awaiting results of protocols for extubation. The patient's Rocephin will be discontinued at this time as his sputum culture revealed likely oral contaminant. The patient will continue on Levaquin. Qualifiers: Respiratory failure complication: hypoxia and hypercapnia Qualified Code(s) : J96.21 - Acute and chronic respiratory failure with hypoxia; J96.22 - Acute and chronic respiratory failure with hypercapnia; J96.22 - Acute and chronic respiratory failure with hypercapnia; J96.22 - Acute and chronic respiratory failure with hypercapnia (2) COPD exacerbation Current Visit: Yes Status: Acute Likely etiology of patient's respiratory distress and respiratory failure. We will continue to monitor the patient's respiratory status. Patient was given likely be extubated today. Subjective Principal diagnosis: COPD Exacerbation Interval history: Patient has done well overnight on the ventilator. He was switched to spontaneous at roughly 6:15 this morning and has been taking good tidal volumes a roughly 5-600 mL. The patient is resting comfortably on the ventilator and following commands and answering questions. The patient was seen by neurology who had no further recommendations at this time. In addition the patient was noted to have a large secretions by team yesterday. Upon further questioning the patient and the patient normally has a large amount of secretions where he spits into a car on a regular basis. This is not unusual despite a possible traumatic intubation. Objective PUL Vital signs: Last Vital Signs Temp 98.6 F 11/11/17 04:00 Pulse 84 11/11/17 07:00 Resp 20 11/11/17 07:00 BP 136/88 11/11/17 07:00 Pulse Ox 100 11/11/17 07:00 General appearance: no acute distress Eyes: nonicteric ENT: oropharynx moist Effort: normal Auscultation: bilateral: diminished breath sounds Cardiovascular: regular rate and rhythm Gastrointestinal: soft, non-tender Integumentary: normal Extremities: no cyanosis, no edema, no clubbing Musculoskeletal: no deformities normal mental status, non-focal exam Ventilator Settings Ventilator Settings: Ventilator Settings, Last 8 Hours Ventilator Mode CPAP Ventilator Mode VC+ Ventilator Mode VC+ Ventilator Mode VC+ Ventilator Mode VC+ Ventilator Mode VC+ Ventilator Mode VC+ Ventilator Tidal Volume 450 Setting Ventilator Tidal Volume 450 Setting Ventilator Tidal Volume 450 Setting Ventilator Tidal Volume 450 Setting Ventilator Tidal Volume 450 Setting Ventilator Tidal Volume 450 Setting Ventilator Tidal Volume 500 Setting Ventilator Respiratory Rate 12 Setting Ventilator Respiratory Rate 12 Setting Ventilator Respiratory Rate 12 Setting Ventilator Respiratory Rate 12 Setting Ventilator Respiratory Rate 12 Setting Ventilator Respiratory Rate 12 Setting Actual Respiratory Rate 12 Actual Respiratory Rate 20 Actual Respiratory Rate 15 Actual Respiratory Rate 15 Actual Respiratory Rate 15 Positive End Expiratory 5 Pressure Positive End Expiratory 5 Pressure Positive End Expiratory 5 Pressure Positive End Expiratory 5 Pressure Positive End Expiratory 5 Pressure Positive End Expiratory 5 Pressure Positive End Expiratory 5 Pressure Peak Inspiratory Airway 10 Pressure Peak Inspiratory Airway 14 Pressure Peak Inspiratory Airway 17 Pressure Peak Inspiratory Airway 18 Pressure Peak Inspiratory Airway 15 Pressure Peak Inspiratory Airway 22 Pressure Results - Laboratory Findings CBC and BMP: 11/11/17 03:29 11/11/17 03:29 ABG ABG pH 7.48 pH Units (7.32-7.45) H 11/11/17 05:03 ABG pCO2 43 mmHg (35-45) 11/11/17 05:03 ABG pO2 89 mmHg (85-104) 11/11/17 05:03 ABG O2 Saturation 97 % (95-98) 11/11/17 05:03 Abnormal lab findings: Abnormal lab results WBC 12.2 K/mcL (4.3-11.1) H 11/11/17 03:29 RBC 4.06 M/mcL (4.19-5.50) L 11/11/17 03:29 Hgb 10.8 g/dL (12.9-16.9) L 11/11/17 03:29 Hct 32.5 % (37.5-50.1) L 11/11/17 03:29 MCV 80.0 fL (83.0-100.0) L 11/11/17 03:29 MCH 26.6 pg (28.0-33.3) L 11/11/17 03:29 RDW 15.9 % (11.5-14.5) H 11/11/17 03:29 Neutrophils # 11.1 K/mcL (1.6-8.9) H 11/11/17 03:29 Lymphocytes # 0.4 K/mcL (0.6-4.6) L 11/11/17 03:29 Nucleated RBCs/100 WBC 0.2 /100 WBC (0) H 11/11/17 03:29 ABG pH 7.48 pH Units (7.32-7.45) H 11/11/17 05:03 ABG HCO3 33 mEq/L (21-27) H 11/11/17 05:03 ABG Total CO2 34 mEq/L (20-26) H 11/11/17 05:03 ABG Base Excess 8 mEq/L (-2 to 3) H 11/11/17 05:03 Sodium 132 mEq/L (136-145) L 11/11/17 03:29 Chloride 97 mEq/L (98-107) L 11/11/17 03:29 Carbon Dioxide 30 mEq/L (23-29) H 11/11/17 03:29 Creatinine 0.56 mg/dL (0.70-1.30) L 11/11/17 03:29 BUN/Creatinine Ratio 29 (6-26) H 11/11/17 03:29 Glucose 112 mg/dL (70-105) H 11/11/17 03:29 POC Glucose 108 (58-89) H 11/10/17 23:41 Calculated Osmolality 276 (280-300) L 11/11/17 03:29 - Microbiology Findings Microbiology Findings: Microbiology, Last 48 Hours 11/09/17 21:15 Blood Culture - Preliminary Peripheral Venipuncture No growth. 11/09/17 21:14 Blood Culture - Preliminary Peripheral Venipuncture No growth. 11/09/17 20:32 Sputum Culture - Preliminary Sputum 11/09/17 18:50 Legionella Antigen - Final Urine,[place] Streptococcus pneumoniae Antigen (M - Final - Clinical Findings Intake & Output: Intake & Output 11/10/17 11/10/17 11/11/17 15:59 23:59 07:59 Intake Total 261 / 261 221 / 221 91 / 91 Output Total 200 / 200 505 / 505 220 / 220 Balance 61 / 61 -284 / -284 -129 / -129 Weight 65.6 kg Consult Discharge Plan - Plan Referrals: Rigo Marte [Primary Care Provider] - - Attending Attestation I examined this patient and my medical decision-making was reviewed with the Resident Physician. I agree with the documented findings, disposition and treatment plan as described except to the extent set forth below. <Kael Adams W - Last Filed: 11/11/17 14:33> Date of Encounter: 11/11/17 Objective PUL Vital signs: Last Vital Signs Temp 98.4 F 11/11/17 07:30 Pulse 77 11/11/17 09:25 Resp 18 11/11/17 09:28 BP 147/89 11/11/17 09:28 Pulse Ox 100 11/11/17 09:28 Ventilator Settings Ventilator Settings: Ventilator Settings, Last 8 Hours Ventilator Mode CPAP Ventilator Mode CPAP Ventilator Mode CPAP Ventilator Mode VC+ Ventilator Mode VC+ Ventilator Mode VC+ Ventilator Mode VC+ Ventilator Mode VC+ Ventilator Tidal Volume 450 Setting Ventilator Tidal Volume 450 Setting Ventilator Tidal Volume 450 Setting Ventilator Tidal Volume 450 Setting Ventilator Tidal Volume 450 Setting Ventilator Respiratory Rate 12 Setting Ventilator Respiratory Rate 12 Setting Ventilator Respiratory Rate 12 Setting Ventilator Respiratory Rate 12 Setting Ventilator Respiratory Rate 12 Setting Actual Respiratory Rate 21 Actual Respiratory Rate 16 Actual Respiratory Rate 12 Actual Respiratory Rate 20 Actual Respiratory Rate 15 Actual Respiratory Rate 15 Positive End Expiratory 5 Pressure Positive End Expiratory 5 Pressure Positive End Expiratory 5 Pressure Positive End Expiratory 5 Pressure Positive End Expiratory 5 Pressure Positive End Expiratory 5 Pressure Positive End Expiratory 5 Pressure Positive End Expiratory 5 Pressure Peak Inspiratory Airway 11 Pressure Peak Inspiratory Airway 10 Pressure Peak Inspiratory Airway 10 Pressure Peak Inspiratory Airway 14 Pressure Peak Inspiratory Airway 17 Pressure Peak Inspiratory Airway 18 Pressure Peak Inspiratory Airway 15 Pressure Results - Laboratory Findings CBC and BMP: 11/11/17 03:29 11/11/17 03:29 ABG ABG pH 7.48 pH Units (7.32-7.45) H 11/11/17 05:03 ABG pCO2 43 mmHg (35-45) 11/11/17 05:03 ABG pO2 89 mmHg (85-104) 11/11/17 05:03 ABG O2 Saturation 97 % (95-98) 11/11/17 05:03 Abnormal lab findings: Abnormal lab results WBC 12.2 K/mcL (4.3-11.1) H 11/11/17 03:29 RBC 4.06 M/mcL (4.19-5.50) L 11/11/17 03:29 Hgb 10.8 g/dL (12.9-16.9) L 11/11/17 03:29 Hct 32.5 % (37.5-50.1) L 11/11/17 03:29 MCV 80.0 fL (83.0-100.0) L 11/11/17 03:29 MCH 26.6 pg (28.0-33.3) L 11/11/17 03:29 RDW 15.9 % (11.5-14.5) H 11/11/17 03:29 Neutrophils # 11.1 K/mcL (1.6-8.9) H 11/11/17 03:29 Lymphocytes # 0.4 K/mcL (0.6-4.6) L 11/11/17 03:29 Nucleated RBCs/100 WBC 0.2 /100 WBC (0) H 11/11/17 03:29 ABG pH 7.48 pH Units (7.32-7.45) H 11/11/17 05:03 ABG HCO3 33 mEq/L (21-27) H 11/11/17 05:03 ABG Total CO2 34 mEq/L (20-26) H 11/11/17 05:03 ABG Base Excess 8 mEq/L (-2 to 3) H 11/11/17 05:03 Sodium 132 mEq/L (136-145) L 11/11/17 03:29 Chloride 97 mEq/L (98-107) L 11/11/17 03:29 Carbon Dioxide 30 mEq/L (23-29) H 11/11/17 03:29 Creatinine 0.56 mg/dL (0.70-1.30) L 11/11/17 03:29 BUN/Creatinine Ratio 29 (6-26) H 11/11/17 03:29 Glucose 112 mg/dL (70-105) H 11/11/17 03:29 POC Glucose 108 (58-89) H 11/10/17 23:41 Calculated Osmolality 276 (280-300) L 11/11/17 03:29 - Microbiology Findings Microbiology Findings: Microbiology, Last 48 Hours 11/09/17 20:32 Sputum Culture - Preliminary Sputum 11/09/17 21:15 Blood Culture - Preliminary Peripheral Venipuncture No growth. 11/09/17 21:14 Blood Culture - Preliminary Peripheral Venipuncture No growth. 11/09/17 18:50 Legionella Antigen - Final Urine,[place] Streptococcus pneumoniae Antigen (M - Final - Clinical Findings Intake & Output: Intake & Output 11/10/17 11/11/17 11/11/17 23:59 07:59 15:59 Intake Total 221 / 221 91 / Output Total 505 / 505 395 / 395 Balance -284 / -284 -304 / -304 Weight 65.6 kg - Attending Attestation I examined this patient and my medical decision-making was reviewed with the Resident Physician. I agree with the documented findings, disposition and treatment plan as described except to the extent set forth below. We independently had [id number] contact with the patient I spent 32min of Critical Care time with this patient. It involved decision making of high complexity to assess, manipulate, and support vital organ system failure and/or to prevent further life threatening deterioration of the patient' s condition. The time involved in the performance of separately reportable procedures was not counted toward critical care time. Patient seen and examined at bedside Labs, radiology, chart personally reviewed. Management was reviewed during multidisciplinary critical care rounds. NAIL GALVANIZER: Encephalopathy has resolved patient is fully awake and following commands he has some anxiety of being on the ventilator but this is being controlled with minimal amount of medicine. Pulm: Acute hypoxic hypercarbic respiratory failure requiring intubation acceptable gas exchange today he has done well on spontaneous breathing trial although he has a positive cuff leak given history of prior head and neck radiation and traumatic intubation I am concerned about extubation with progression to the need for surgical airway plan to extubate patient in the OR with anesthesia present and ENT on standby I spoke directly with the lift manager on-call about this case (Dr Walker) and she stated that she will be available. We will continue Decadron 4 airway inflammation concern. Also continue bronchodilators for history of COPD Cards: Blood pressure stable continue to monitor on telemetry. Suspected underlying heart failure with preserved ejection fraction start a loop diuretic today to augment liberation from vent FEN-GI: Antral nutrition on hold pending liberation from the vent Renal: Renal function stable urine output monitored ID: Treating for community-acquired pneumonia with plan to de-escalate Heme/Onc: Continue DVT prophylaxis per routine Endo: Glucose Monitored Integ/MSK: Skin Care per routine ICU Nursing Protocol to prevent ulcers. Lines: All lines examined without evidence of infection : Dispo: Remain in ICU today CODE: Full code
[2017-11-11] MEDS ORDERED: *HR* Midazolam HCl 5 MG/5 ML VIAL IVP ONE (08:07)
[2017-11-11] MEDS ORDERED: *HR* Succinylcholine 200 MG/10 ML VIAL IVP ONE (08:07)
[2017-11-11] MEDS: Nicotine 21 MG PATCH.TD24 TD SCH (09:03)
[2017-11-11] MEDS: Levofloxacin 750 MG/150 ML 750 MG/150 ML BAG IVPB SCH (09:03)
[2017-11-11] MEDS: cefTRIAXone 1,000 MG in Water for inj. (sterile) 10 ML IVP SCH (09:04)
[2017-11-11] MEDS: Dexamethasone 10 MG/ML VIAL IVP SCH ×4 (09:05→22:00)
[2017-11-11] MEDS: Pantoprazole 40 MG VIAL IVP SCH (09:05)
[2017-11-11] MEDS: Chlorhexidine Rinse 15 ML MOUTHWASH MM SCH ×2 (09:05→20:07)
[2017-11-11] MEDS ORDERED: Furosemide 20 MG/2 ML VIAL IVP ONE (09:08)
[2017-11-11 09:40] LABS: Magnesium 1.9 mg/dL (1.6-2.6)
[2017-11-11] MEDS ORDERED: 0.9 % Sodium Chloride 1,000 ML ONE (15:41)
--- NOTE | 2017-11-11 15:54 | Anesthesia Evaluation PreOp ---
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: Denies Any Significant HX Other Medical History: Denies Any Significant HX Anesthesia History: No Prior Anesthetic Complications Alcohol Use: none Drug use: none Medications and Allergies Albuterol Neb [Proventil Neb] 2.5 mg IH Q4HR 11/09/17 [History] Aspirin Enteric Coated [Aspirin EC] 81 mg PO DAILY 11/09/17 [History] Cilostazol [Pletal] 100 mg PO BID 11/09/17 [History] Esomeprazole Magnesium [Nexium] 20 mg PO DAILY 11/09/17 [History] Fluticasone/Salmeterol [Advair 250-50 Diskus] 2 puff IH BID 11/09/17 [History] Levothyroxine [Synthroid] 100 mcg PO DAILY 11/09/17 [History] Tiotropium [place] [Spiriva Respimat] 1 puff IH DAILY 11/09/17 [History] 3 Allergy/AdvReac Type Severity Reaction Status Date / Time No Known Allergies Allergy Verified 07/20/17 19:29 - Meds/Allergy Pre-op Review Medications Reviewed: Yes Allergies Reviewed: Yes Beta Blockers on Current Med List: No Anesthesia Results - Labs 11/11/17 03:29 11/11/17 03:29 - Imaging EKG: report reviewed Anesthesia Exam O2 Sat Weight 65.6 kg O2 Sat by Pulse Oximetry 100 O2 Sat by Pulse Oximetry 100 O2 Sat by Pulse Oximetry 100 O2 Sat by Pulse Oximetry 100 O2 Sat by Pulse Oximetry 100 O2 Sat by Pulse Oximetry 100 O2 Sat by Pulse Oximetry 100 O2 Sat by Pulse Oximetry 99 O2 Sat by Pulse Oximetry 100 O2 Sat by Pulse Oximetry 100 O2 Sat by Pulse Oximetry 100 O2 Sat by Pulse Oximetry 100 O2 Sat by Pulse Oximetry 100 O2 Sat by Pulse Oximetry 100 O2 Sat by Pulse Oximetry 100 O2 Sat by Pulse Oximetry 100 O2 Sat by Pulse Oximetry 100 O2 Sat by Pulse Oximetry 99 O2 Sat by Pulse Oximetry 99 O2 Sat by Pulse Oximetry 100 O2 Sat by Pulse Oximetry 100 O2 Sat by Pulse Oximetry 99 O2 Sat by Pulse Oximetry 99 O2 Sat by Pulse Oximetry 99 O2 Sat by Pulse Oximetry 98 O2 Sat by Pulse Oximetry 100 O2 Sat by Pulse Oximetry 100 O2 Sat by Pulse Oximetry 100 O2 Sat by Pulse Oximetry 100 O2 Sat by Pulse Oximetry 100 O2 Sat by Pulse Oximetry 100 O2 Sat by Pulse Oximetry 99 O2 Sat by Pulse Oximetry 99 O2 Sat by Pulse Oximetry 97 O2 Sat by Pulse Oximetry 98 O2 Sat by Pulse Oximetry 99 Vital Signs Temp Pulse Resp BP Pulse Ox 97.5 F L 86 32 206/118 94 11/08/17 22:06 11/08/17 22:06 11/08/17 22:06 11/08/17 22:06 11/08/17 22:06 Height: 5'10 Weight: 144 lbs NPO (# of Hours): MN Pain Scale: 0 - HEENT Pupil (Motor): Pupils equal, EOMI Mallampati: Intubated Teeth: Edentulous Oral Opening: Greater than 3 - BOARD WRITER LOC: Oriented BOARD WRITER Motor: Normal RUE, Normal LUE, Normal RLE, Normal LLE, Normal Face BOARD WRITER Sensory: Normal: RUE, LUE, RLE, LLE, Face - Cardiac Rhythm: Regular Murmur: None JVD: No Carotid Bruit: No - Pulmonary Breath Sounds: bilateral Clear Anesthesia Assess/Plan ASA Score: 3 (COPD PVD) Modified [place] Scale for Level of Consciousness: Cooperative, oriented, and tranquil Monitoring Plan: Standard Monitors Recovery Plan: ICU (Discussed possible re intubation)
[2017-11-11] MEDS ORDERED: *HR* Propofol 200 MG/20 ML VIAL IVP ONE (16:01)
[2017-11-11] MEDS ORDERED: Furosemide 40 MG/4 ML VIAL IVP ONE (17:24)
[2017-11-12] MEDS: Lacri-Lube 3.5 GM TUBE BOTH EYES SCH ×2 (03:23→07:49)
[2017-11-12] MEDS: Ipratropium/Albuterol Neb 3 ML IH SCH ×4 (04:06→21:51)
[2017-11-12] MEDS: Insulin LISPRO 300 UNITS/3 ML VIAL SQ SCH ×2 (05:26→15:45)
[2017-11-12] MEDS: *HR* Heparin 5,000 UNIT/ML VIAL SQ SCH ×2 (05:26→17:23)
[2017-11-12] MEDS: Dexamethasone 10 MG/ML VIAL IVP SCH (05:26)
[2017-11-12 05:32] LABS: Hematocrit 37.9 % (37.5-50.1); Hemoglobin 12.7 g/dL (12.9-16.9); Immature Granulocytes % 0.5 % (0-4); Lymphocytes # 0.2 K/mcL (0.6-4.6); Lymphocytes % 2.4 %; Mean Corpuscular HGB Conc 33.5 g/dL (31.6-35.5); Mean Corpuscular Hemoglobin 26.2 pg (28.0-33.3); Mean Corpuscular Volume 78.3 fL (83.0-100.0); Mean Platelet Volume 9.7 fL (9.4-12.4); Monocytes # 0.3 K/mcL (0.0-1.3); Neutrophils # 8.1 K/mcL (1.6-8.9); Platelet Count 283 K/mcL (140-400); Red Blood Count 4.84 M/mcL (4.19-5.50); Red Cell Distribution Width 16.1 % (11.5-14.5); Segmented Neutrophils % 94.1 %
[2017-11-12 05:47] LABS: BUN/Creatinine Ratio 28 (6-26); Blood Urea Nitrogen 17 mg/dL (8-23); Calcium 8.9 mg/dL (8.6-10.3); Carbon Dioxide 30 mEq/L (23-29); Chloride 94 mEq/L (98-107); Glucose 117 mg/dL (70-105); Magnesium 2.2 mg/dL (1.6-2.6); Osmolality,Calculated 277 (280-300); Potassium 4.2 mEq/L (3.5-5.1); Sodium 132 mEq/L (136-145); eGFR For African Americans > 60 (> 60); eGFR For Non-African Americans > 60 (> 60)
--- NOTE | 2017-11-12 07:42 | Pulmonology Progress Note ---
<Michoacano Palacios - Last Filed: 11/12/17 11:59> Date of Encounter: 11/12/17 Time of Encounter: 07:42 Assessment and Plan (1) Acute and chronic respiratory failure Current Visit: Yes Status: Acute He has done well overnight in the room. He is no longer requiring BiPAP. The patient demonstrates no obvious wheezing or is in any respiratory distress. We will transfer the patient out of the ICU today. Qualifiers: Respiratory failure complication: hypoxia and hypercapnia Qualified Code(s) : J96.21 - Acute and chronic respiratory failure with hypoxia; J96.22 - Acute and chronic respiratory failure with hypercapnia; J96.22 - Acute and chronic respiratory failure with hypercapnia; J96.22 - Acute and chronic respiratory failure with hypercapnia (2) COPD exacerbation Current Visit: Yes Status: Acute Patient will be continued on by mouth prednisone. He will be transferred out of the ICU today. The patient has scheduled breathing treatments which will continue as well. Subjective Principal diagnosis: COPD Exacerbation Interval history: Patient has done well overnight on nasal cannula. He has not required any BiPAP. The patient has been awake handling his secretions all night. He has had no episodes of swelling of his throat overnight. The patient states his secretions are at his baseline where he is suctioning his own secretions out. He denies any complaints at this time and is requesting a diet. Patient will likely be transferred out of the ICU today. Objective PUL Vital signs: Last Vital Signs Temp 97.8 F 11/12/17 03:00 Pulse 82 11/12/17 06:00 Resp 12 11/12/17 06:00 BP 145/92 11/12/17 06:00 Pulse Ox 96 11/12/17 06:00 General appearance: no acute distress Eyes: nonicteric ENT: oropharynx moist Effort: normal Auscultation: bilateral: clear Cardiovascular: regular rate and rhythm Gastrointestinal: soft, non-tender Integumentary: normal Extremities: no cyanosis, no edema, pulses normal Musculoskeletal: no deformities normal mental status, non-focal exam Results - Laboratory Findings CBC and BMP: 11/12/17 05:04 11/12/17 05:04 ABG ABG pH 7.48 pH Units (7.32-7.45) H 11/11/17 05:03 ABG pCO2 43 mmHg (35-45) 11/11/17 05:03 ABG pO2 89 mmHg (85-104) 11/11/17 05:03 ABG O2 Saturation 97 % (95-98) 11/11/17 05:03 Abnormal lab findings: Abnormal lab results Hgb 12.7 g/dL (12.9-16.9) L D 11/12/17 05:04 MCV 78.3 fL (83.0-100.0) L 11/12/17 05:04 MCH 26.2 pg (28.0-33.3) L 11/12/17 05:04 RDW 16.1 % (11.5-14.5) H 11/12/17 05:04 Lymphocytes # 0.2 K/mcL (0.6-4.6) L 11/12/17 05:04 Nucleated RBCs/100 WBC 0.2 /100 WBC (0) H 11/11/17 03:29 ABG pH 7.48 pH Units (7.32-7.45) H 11/11/17 05:03 ABG HCO3 33 mEq/L (21-27) H 11/11/17 05:03 ABG Total CO2 34 mEq/L (20-26) H 11/11/17 05:03 ABG Base Excess 8 mEq/L (-2 to 3) H 11/11/17 05:03 Sodium 132 mEq/L (136-145) L 11/12/17 05:04 Chloride 94 mEq/L (98-107) L 11/12/17 05:04 Carbon Dioxide 30 mEq/L (23-29) H 11/12/17 05:04 Creatinine 0.60 mg/dL (0.70-1.30) L 11/12/17 05:04 BUN/Creatinine Ratio 28 (6-26) H 11/12/17 05:04 Glucose 117 mg/dL (70-105) H 11/12/17 05:04 POC Glucose 115 (58-89) H 11/11/17 23:34 Calculated Osmolality 277 (280-300) L 11/12/17 05:04 - Microbiology Findings Microbiology Findings: Microbiology, Last 48 Hours 11/09/17 20:32 Sputum Culture - Final Sputum 11/09/17 21:15 Blood Culture - Preliminary Peripheral Venipuncture No growth. 11/09/17 21:14 Blood Culture - Preliminary Peripheral Venipuncture No growth. - Clinical Findings Intake & Output: Intake & Output 11/11/17 11/11/17 11/12/17 15:59 23:59 07:59 Intake Total 200 / 200 610 / 610 Output Total 850 / 850 1950 / 1950 400 / 400 Balance -650 / -650 -1340 / -1340 -400 / -400 Weight 61.2 kg Consult Discharge Plan - Plan Referrals: Rigo Marte [Primary Care Provider] - - Attending Attestation I examined this patient and my medical decision-making was reviewed with the Resident Physician. I agree with the documented findings, disposition and treatment plan as described except to the extent set forth below. <Kael Adams W - Last Filed: 11/12/17 12:36> Date of Encounter: 11/12/17 Objective PUL Vital signs: Last Vital Signs Temp 98.1 F 11/12/17 07:51 Pulse 81 11/12/17 08:00 Resp 15 11/12/17 08:00 BP 138/86 11/12/17 08:00 Pulse Ox 97 11/12/17 08:00 Results - Laboratory Findings CBC and BMP: 11/12/17 05:04 11/12/17 05:04 ABG ABG pH 7.48 pH Units (7.32-7.45) H 11/11/17 05:03 ABG pCO2 43 mmHg (35-45) 11/11/17 05:03 ABG pO2 89 mmHg (85-104) 11/11/17 05:03 ABG O2 Saturation 97 % (95-98) 11/11/17 05:03 Abnormal lab findings: Abnormal lab results Hgb 12.7 g/dL (12.9-16.9) L D 11/12/17 05:04 MCV 78.3 fL (83.0-100.0) L 11/12/17 05:04 MCH 26.2 pg (28.0-33.3) L 11/12/17 05:04 RDW 16.1 % (11.5-14.5) H 11/12/17 05:04 Lymphocytes # 0.2 K/mcL (0.6-4.6) L 11/12/17 05:04 Nucleated RBCs/100 WBC 0.2 /100 WBC (0) H 11/11/17 03:29 ABG pH 7.48 pH Units (7.32-7.45) H 11/11/17 05:03 ABG HCO3 33 mEq/L (21-27) H 11/11/17 05:03 ABG Total CO2 34 mEq/L (20-26) H 11/11/17 05:03 ABG Base Excess 8 mEq/L (-2 to 3) H 11/11/17 05:03 Sodium 132 mEq/L (136-145) L 11/12/17 05:04 Chloride 94 mEq/L (98-107) L 11/12/17 05:04 Carbon Dioxide 30 mEq/L (23-29) H 11/12/17 05:04 Creatinine 0.60 mg/dL (0.70-1.30) L 11/12/17 05:04 BUN/Creatinine Ratio 28 (6-26) H 11/12/17 05:04 Glucose 117 mg/dL (70-105) H 11/12/17 05:04 POC Glucose 115 (58-89) H 11/11/17 23:34 Calculated Osmolality 277 (280-300) L 11/12/17 05:04 - Microbiology Findings Microbiology Findings: Microbiology, Last 48 Hours 11/09/17 20:32 Sputum Culture - Final Sputum 11/09/17 21:15 Blood Culture - Preliminary Peripheral Venipuncture No growth. 11/09/17 21:14 Blood Culture - Preliminary Peripheral Venipuncture No growth. - Clinical Findings Intake & Output: Intake & Output 11/11/17 11/12/17 11/12/17 23:59 07:59 15:59 Intake Total 610 / 610 Output Total 1950 / 1950 600 / 600 Balance -1340 / -1340 -600 / -600 Weight 61.2 kg - Attending Attestation I examined this patient and my medical decision-making was reviewed with the Resident Physician. I agree with the documented findings, disposition and treatment plan as described except to the extent set forth below. We independently had [id number] contact with the patient Patient seen and examined at bedside Labs, radiology, chart personally reviewed. Management was reviewed during multidisciplinary critical care rounds. 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 commands Pulm: Acute hypoxic respiratory failure secondary to COPD exacerbation and possible pneumonia improving extubated doing well on nasal cannula oxygen continue bronchodilators transitioned to enteral steroid formulation and complete course of antimicrobials Cards: Veins hypertensive we are adjusting his medications to reflect his home dosing of antihypertensives FEN-GI: ADAT Renal: Kidney function stable urine output monitored remove García catheter ID: Recommend treatment for pneumonia for 5-7 days based upon clinical course Heme/Onc: DVT prophylaxis given Endo: Glucose Monitored Integ/MSK: Skin Care per routine ICU Nursing Protocol to prevent ulcers. Lines: All lines examined without evidence of infection : Dispo: Table for transfer out of ICU to [facility] [place] for ongoing care CODE: Full
[2017-11-12] MEDS: Nicotine 21 MG PATCH.TD24 TD SCH (07:47)
[2017-11-12] MEDS: Pantoprazole 40 MG VIAL IVP SCH (07:47)
[2017-11-12] MEDS: Chlorhexidine Rinse 15 ML MOUTHWASH MM SCH (07:48)
[2017-11-12] MEDS: Levofloxacin 750 MG/150 ML 750 MG/150 ML BAG IVPB SCH (07:48)
[2017-11-12] MEDS ORDERED: predniSONE 20 MG TABLET PO SCH (09:00)
[2017-11-12] MEDS ORDERED: Ipratropium/Albuterol Neb 3 ML IH PRN (15:33)
[2017-11-12] MEDS: FentaNYL (PF) 1,000 MCG in 0.9 % Sodium Chloride 80 ML IVC SCH ×3 (15:43→15:45)
[2017-11-12] MEDS: 0.9 % Sodium Chloride 1,000 ML IVC SCH ×2 (15:44→15:45)
--- NOTE | 2017-11-12 19:15 | Electrocardiograph Report ---
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
[2017-11-13] MEDS: Ipratropium/Albuterol Neb 3 ML IH SCH ×4 (04:46→21:25)
[2017-11-13 05:28] LABS: Basophils % 0.1 %; Hematocrit 37.7 % (37.5-50.1); Hemoglobin 12.8 g/dL (12.9-16.9); Immature Granulocytes % 0.6 % (0-4); Lymphocytes # 0.7 K/mcL (0.6-4.6); Lymphocytes % 4.5 %; Mean Corpuscular Hemoglobin 27.2 pg (28.0-33.3); Mean Platelet Volume 9.6 fL (9.4-12.4); Monocytes # 1.1 K/mcL (0.0-1.3); Monocytes % 6.8 %; Neutrophils # 14.1 K/mcL (1.6-8.9); Platelet Count 285 K/mcL (140-400); Red Blood Count 4.71 M/mcL (4.19-5.50); Red Cell Distribution Width 16.1 % (11.5-14.5)
[2017-11-13 06:11] LABS: BUN/Creatinine Ratio 27 (6-26); Blood Urea Nitrogen 18 mg/dL (8-23); Calcium 8.7 mg/dL (8.6-10.3); Carbon Dioxide 30 mEq/L (23-29); Chloride 95 mEq/L (98-107); Glucose 86 mg/dL (70-105); Magnesium 2.1 mg/dL (1.6-2.6); Osmolality,Calculated 273 (280-300); Potassium 3.8 mEq/L (3.5-5.1); Sodium 131 mEq/L (136-145); eGFR For African Americans > 60 (> 60); eGFR For Non-African Americans > 60 (> 60)
[2017-11-13] MEDS: *HR* Heparin 5,000 UNIT/ML VIAL SQ SCH ×2 (06:22→18:17)
[2017-11-13] MEDS ORDERED: levoFLOXacin 500 MG TABLET PO SCH (09:00)
[2017-11-13] MEDS: Nicotine 21 MG PATCH.TD24 TD SCH (09:22)
[2017-11-13] MEDS: levoFLOXacin 500 MG TABLET PO SCH (09:22)
[2017-11-13] MEDS: predniSONE 20 MG TABLET PO SCH (09:24)
--- NOTE | 2017-11-13 13:25 | Internal Med Progress Note ---
Date of Encounter: 11/13/17 Time of Encounter: 13:25 - Assessment and plan (1) Acute respiratory failure Current Visit: Yes Status: Resolved Assessment and plan: resolved Patient is on room air and not on O2 at home, continue to monitor Qualifiers: Respiratory failure complication: hypoxia Qualified Code(s): J96.01 - Acute respiratory failure with hypoxia (2) COPD exacerbation Current Visit: Yes Status: Acute Assessment and plan: continue prednisone for one more day [place] Continue levaquin-Day 4. 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 Absent: lymphadenopathy - Respiratory Respiratory exam: Present: CTAB. Absent: accessory muscle use, rales, rhonchi, wheezes - Cardiovascular Cardiovascular exam: Present: RRR, +S1, +S2. Absent: diastolic murmur, gallop, rubs, systolic murmur - GI/Abdominal GI/Abdominal exam: Present: normal bowel sounds, soft, no peritoneal signs. Absent: distended, tenderness - Extremities Exam Extremities exam: Present: warm, radial pulses palpable and symmetrical. Absent : calf tenderness, cyanotic, pedal edema - Neurological Exam Neurological exam: Present: alert, CN II-XII intact, oriented X3, no focal deficits. Absent: pronater drift, facial droop, speech deficit - Skin Skin exam: Present: dry, intact Internal Medicine: Result - Labs CBC & Chem 7: 11/13/17 04:31 11/13/17 04:31 Labs: Short CBC 11/13/17 Range/Units 04:31 WBC 16.0 H D (4.3-11.1) K/mcL Hgb 12.8 L (12.9-16.9) g/dL Hct 37.7 (37.5-50.1) % Plt Count 285 (140-400) K/mcL Neutrophils # 14.1 H (1.6-8.9) K/mcL BMP 11/13/17 04:31 Sodium 131 L Potassium 3.8 Chloride 95 L Carbon Dioxide 30 H BUN 18 Creatinine 0.66 L Glucose 86 Calcium 8.7 - ABG Interpretation ABG results: ABG ABG pH 7.48 pH Units (7.32-7.45) H 11/11/17 05:03 ABG pCO2 43 mmHg (35-45) 11/11/17 05:03 ABG pO2 89 mmHg (85-104) 11/11/17 05:03 ABG O2 Saturation 97 % (95-98) 11/11/17 05:03 - VTE Documentation of Mechanical Device: Intermittent pneumatic compression device Consult Discharge Plan - Plan Referrals: Rigo Marte [Primary Care Provider] -
[2017-11-14] MEDS: Ipratropium/Albuterol Neb 3 ML IH SCH ×2 (04:32→10:29)
[2017-11-14] MEDS: *HR* Heparin 5,000 UNIT/ML VIAL SQ SCH (05:36)
[2017-11-14 05:42] LABS: BUN/Creatinine Ratio 23 (6-26); Blood Urea Nitrogen 15 mg/dL (8-23); Calcium 8.7 mg/dL (8.6-10.3); Carbon Dioxide 33 mEq/L (23-29); Chloride 93 mEq/L (98-107); Glucose 78 mg/dL (70-105); Magnesium 1.9 mg/dL (1.6-2.6); Osmolality,Calculated 274 (280-300); Potassium 4.1 mEq/L (3.5-5.1); Sodium 132 mEq/L (136-145); eGFR For African Americans > 60 (> 60); eGFR For Non-African Americans > 60 (> 60)
[2017-11-14 05:43] LABS: Basophils % 0.1 %; Eosinophils % 0.1 %; Hematocrit 40.2 % (37.5-50.1); Hemoglobin 13.2 g/dL (12.9-16.9); Immature Granulocytes % 0.4 % (0-4); Lymphocytes # 0.8 K/mcL (0.6-4.6); Lymphocytes % 4.6 %; Mean Corpuscular HGB Conc 32.8 g/dL (31.6-35.5); Mean Corpuscular Hemoglobin 26.8 pg (28.0-33.3); Mean Corpuscular Volume 81.7 fL (83.0-100.0); Mean Platelet Volume 9.9 fL (9.4-12.4); Monocytes # 1.1 K/mcL (0.0-1.3); Neutrophils # 16.2 K/mcL (1.6-8.9); Platelet Count 298 K/mcL (140-400); Red Blood Count 4.92 M/mcL (4.19-5.50); Segmented Neutrophils % 88.8 %
[2017-11-14] MEDS: levoFLOXacin 500 MG TABLET PO SCH (08:20)
[2017-11-14] MEDS: predniSONE 20 MG TABLET PO SCH (08:22)
[2017-11-14] MEDS: Nicotine 21 MG PATCH.TD24 TD SCH (08:23)
--- NOTE | 2017-11-14 10:42 | Discharge Summary ---
Date of Encounter: 11/14/17 Time of Encounter: 10:41 - Discharge Diagnosis (1) Acute respiratory failure Priority: Primary Status: Resolved Qualifiers: Respiratory failure complication: hypoxia and hypercapnia Qualified Code(s) : J96.01 - Acute respiratory failure with hypoxia; J96.02 - Acute respiratory failure with hypercapnia; J96.02 - Acute respiratory failure with hypercapnia; J96.02 - Acute respiratory failure with hypercapnia (2) COPD exacerbation Priority: Primary Status: Resolved (3) Community acquired pneumonia Priority: Primary Status: Suspected Qualifiers: Laterality: unspecified laterality Qualified Code(s): J18.9 - Pneumonia, unspecified organism (4) DVT prophylaxis Priority: Primary Status: Acute (5) Hyponatremia Priority: Secondary Status: Chronic (6) Leukocytosis Priority: Primary Status: Acute Qualifiers: Leukocytosis type: unspecified Qualified Code(s): D72.829 - Elevated white blood cell count, unspecified - Discharge Medications Home Medications: RX: Albuterol Neb [Proventil Neb] 2.5 mg IH Q4HR 11/09/17 [History] RX: Aspirin Enteric Coated [Aspirin EC] 81 mg PO DAILY 11/09/17 [History] RX: Cilostazol [Pletal] 100 mg PO BID 11/09/17 [History] RX: Esomeprazole Magnesium [Nexium] 20 mg PO DAILY 11/09/17 [History] RX: Fluticasone/Salmeterol [Advair 250-50 Diskus] 2 puff IH BID 11/09/17 [ History] RX: Levothyroxine [Synthroid] 100 mcg PO DAILY 11/09/17 [History] RX: Tiotropium [place] [Spiriva Respimat] 1 puff IH DAILY 11/09/17 [History] Allergies/Adverse Reactions: 3 Allergy/AdvReac Type Severity Reaction Status Date / Time No Known Allergies Allergy Verified 07/20/17 19:29 Date of admission: 11/08/17 22:09 Primary care physician: Rigo Marte Consults: 11/09/17 01:10 Consult to Critical Care [CONS] Routine Consulting Provider: [facility] [place] Reason for Consult: PNA, COPD exacerbation, intubated Call Completed: Yes 11/09/17 04:33 Consult to Neurology [CONS] Routine Consulting Provider: [facility] Reason for Consult: Unresponsive and unequal pupil Call Completed: Yes Discharging clinician: Dale Bowden Anticipated date of discharge: 11/14/17 - Patient Status Disposition: Home, Self-Care Condition: Good Functional capacity at discharge: independent ambulation Overall status at discharge: patient is back to baseline - Discharge Instructions Instructions: Chronic Obstructive Pulmonary Disease (DC) Follow Up With: Rigo Marte [Primary Care Provider] - 12/04/17 10:45 am - Diet and Activity Activity: resume usual activities as tolerated Diet: regular diet Interval History: See below Hospital course: Mr. Patrick is a 62 year old male with tobacco abuse, COPD, Laryngeal CA, admitted for CAP, he subsequently developed acute resp failure -hypoxic and was transferred to the medical ICU for management. HE also had ansocoria He was intubated successfully after 3 attempts in the ICU, intubation was difficult due to hx of laryngeal CA. HE was managed with IV antibiotcs, steroids , supportive care Work up for anisocoria including head CT was negative. Neck CTA did not show high-grade stenosis He has since been extubated successfully and transferred to the regular floors. He has been ambulatory, without any requirement for O2. His respiratory symptoms have resolved. He has completed a 6 days course of antibiotics and steroids in the hospital He is medically stable to be discharged home with adequate follow up with PCP, Oncologist. He verbalized understanding Tobacco cessation counseling done for 2 mins Time spent discussing smoking cessation with patient: 3 to 10 minutes - Time Spent with Patient Total time spent providing and/or coordinating discharge services: Less than 30 minutes - Constitutional Vitals: Temp Pulse Resp BP Pulse Ox 98.2 F 100 18 114/64 95 11/14/17 07:07 11/14/17 07:07 11/14/17 10:30 11/14/17 07:07 11/14/17 10:30 General appearance: Present: A&O X 3, no acute distress, answers questions appropriately - Head Head exam: Present: atraumatic, normocephalic - Eye Eye exam: Present: PERRL, conjuntiva pink, sclera anicteric Pupils: Present: PERRL - Neck Neck exam general surgery: Present: supple, trachea midline. Absent: lymphadenopathy - Respiratory Respiratory exam: Present: CTAB. Absent: accessory muscle use, rales, rhonchi, wheezes - Cardiovascular Cardiovascular exam: Present: RRR, +S1, +S2. Absent: diastolic murmur, gallop, rubs, systolic murmur - GI/Abdominal GI/Abdominal exam: Present: normal bowel sounds, soft, no peritoneal signs. Absent: distended, tenderness - Extremities Exam Extremities exam: Present: warm, radial pulses palpable and symmetrical. Absent : calf tenderness, cyanotic, pedal edema - Neurological Exam Neurological exam: Present: alert, CN II-XII intact, oriented X3, no focal deficits. Absent: pronater drift, facial droop, speech deficit - Skin Skin exam: Present: dry, intact - VTE Documentation of Mechanical Device: Intermittent pneumatic compression device
--- NOTE | 2017-11-14 10:57 | Procedure Note ---
Date of procedure: 11/11/17 Pre-op diagnosis: Respiratory Failue Post-op diagnosis: same Procedure: This is a late entry. Patient was taken to the operating room for extubation with the anesthesia staff given he was difficult intubation and a history of head and neck cancer status post radiation. Patient was successfully extubated without any complication. Surgeon: Kael Adams Was there an social science research assistant present: No Estimated blood loss (cc): 0 Specimen: none Pathology: none sent Condition: stable (For ongoing care) Disposition: ICU
[2017-11-14 10:59] VITALS: BP 110/71
== END 2017-11-14 11:31 | disposition home or self-care (01) | DRG 208 ==
LOC: ICNU 22:09 → 3ANU 11-12 15:26
PROVIDERS: ADMIT Internal Medicine; ATTEND Internal Medicine

== ENCOUNTER 2017-11-18 20:19 | Inpatient (IN) ==
[2017-11-18] MEDS ORDERED: Levofloxacin 750 MG/150 ML 750 MG/150 ML BAG IVPB ONE (21:06)
[2017-11-18] MEDS ORDERED: Vancomycin 1,000 MG in D5% in Water 250 ML IVPB ONE (21:06)
[2017-11-18] MEDS ORDERED: Piperacillin/Tazobactam 3.375 GM in Water for inj. (sterile) 20 ML 20 ML IVPB STA ×2 (21:06→21:46)
[2017-11-18] MEDS ORDERED: methylPREDNISolone 125 MG/2 ML VIAL IVP ONE (21:06)
[2017-11-18] MEDS ORDERED: Ipratropium/Albuterol Neb 3 ML IH ONE (21:07)
--- NOTE | 2017-11-18 21:08 | Emergency Department Note ---
Disposition Clinical Impression: Hospital-acquired pneumonia Disposition: Admitted As Inpatient Condition: Fair General Adult HPI - General Chief complaint: ED Shortness of Breath/Dyspnea Stated complaint: LORENA Time Seen by Provider: 11/18/17 20:58 Source: patient, family Limitations: no limitations Nursing Notes Reviewed: Yes Vital Signs Reviewed: Yes - History of Present Illness HPI Narrative: Patient with a history of COPD that is not oxygen dependent as well as cancer presents for evaluation of shortness of breath. Patient states that he had recent hospital stay requiring intubation. The patient was diagnosed with pneumonia and COPD exacerbation and was discharged home. The patient states he did not receive antibiotics or steroids. Likely completed during his stay. The patient has been at home using his albuterol treatments as prescribed. Shortness of breath worsened over the last 2 days. The patient presents with some mild respiratory distress requiring 3 L of oxygen to keep his socks at 97% . On exam the patient has decreased breath sounds as well as bilateral rhonchi. Patient with likely age Pneumonia. Blood cultures and antibiotics started upon presentation. The patient is also been given duo nebs and steroids. The patient will be monitored if symptoms worsen he will be placed on BiPAP. Patient does not need BiPAP at this stage. Pain Scale: 0 - Related Data Home Medications Medication Instructions Recorded Confirmed Albuterol Neb [Proventil Neb] 2.5 mg IH Q4HR 11/09/17 11/19/17 Aspirin Enteric Coated [Aspirin EC] 81 mg PO DAILY 11/09/17 11/19/17 Cilostazol [Pletal] 100 mg PO BID 11/09/17 11/19/17 Esomeprazole Magnesium [Nexium] 20 mg PO DAILY 11/09/17 11/19/17 Fluticasone/Salmeterol [Advair 2 puff IH BID 11/09/17 11/19/17 250-50 Diskus] Levothyroxine [Synthroid] 100 mcg PO DAILY 11/09/17 11/19/17 Tiotropium [place] [Spiriva 1 puff IH DAILY 11/09/17 11/19/17 Respimat] Allergies Allergy/AdvReac Type Severity Reaction Status Date / Time No Known Allergies Allergy Verified 11/18/17 20:29 Review of Systems: CONSTITUTIONAL: Subjective fevers, chills, weakness, fatigue HEENT: Eyes: No visual changes. Ears, Nose, Throat: No hearing loss, difficulty talking or unable to swallow. SKIN: No rash or itching. CARDIOVASCULAR: No chest pain, chest pressure or chest discomfort. No palpitations or edema. RESPIRATORY: Shortness of breath with associated cough. GASTROINTESTINAL: No anorexia, nausea, vomiting or diarrhea. No abdominal pain or blood. GENITOURINARY: No burning on urination or hematuria. NEUROLOGICAL: No headache, dizziness, syncope, paralysis, ataxia, numbness or tingling in the extremities. No change in bowel or bladder control. MUSCULOSKELETAL: No muscle pain, back pain, joint pain or stiffness. Past Medical History - Past Medical History Medical history: Reports: COPD, peripheral artery disease Psychiatric history: Reports: no psych history - Social History Smoking Status: Current every day smoker Smokeless Tobacco Status: No Alcohol use: Reports: none Drug use: Reports: none Physical Exam General: Mild respiratory distress Head: Normocephalic Atraumatic Eyes: PERRL, EOMI ENT: Airway patent, mild upper airway wheezing which family states is normal for him. Neck: supple, no meningismus Chest: Diminished breath sounds bilaterally, rhonchi bilaterally. Cardiac: Regular rate and rhythm, no murmurs, rubs or gallops Abdomen: soft, nontender, nondistended; no guarding, rebound, or tenderness to percussion Musculoskeletal: Calves symmetric, nontender, no palpable cord Skin: No rash, normal skin tone Neuro: Alert and Oriented to person, place, and time; No focal deficit, CN 2-12 symmetric and intact - General Limitations: no limitations General appearance: alert Course - Reevaluation(s) Reevaluation #1: Workup consistent with suspected H Pneumonia. Bilateral infiltrates with elevated white count. Reevaluation #2: Patient improved with initial treatments. - Consultations Consultation #1: Discussed with hospitalist patient accepted for admission. Vital Signs Temperature 99.1 F 11/18/17 20:30 Pulse Rate 112 11/18/17 20:30 Respiratory Rate 24 11/18/17 20:30 Blood Pressure 82/51 11/18/17 20:30 O2 Sat by Pulse Oximetry 94 11/18/17 20:30 Temperature 97.8 F 11/19/17 06:35 Pulse Rate 86 11/19/17 06:35 Respiratory Rate 15 11/19/17 06:35 Blood Pressure 134/83 11/19/17 06:35 O2 Sat by Pulse Oximetry 97 11/19/17 06:35 Oxygen Delivery Oxygen Delivery Nasal Cannula Medical Decision Making - Lab Data Result diagrams: 11/18/17 21:30 11/18/17 21:30 Lab Results 11/18/17 11/18/17 11/18/17 Range/Units 21:30 21:30 21:30 WBC 22.0 H (4.3-11.1) K/mcL RBC 4.62 (4.19-5.50) M/mcL Hgb 12.6 L (12.9-16.9) g/dL Hct 38.3 (37.5-50.1) % MCV 82.9 L (83.0-100.0) fL MCH 27.3 L (28.0-33.3) pg MCHC 32.9 (31.6-35.5) g/dL RDW 16.2 H (11.5-14.5) % Plt Count 270 (140-400) K/mcL MPV 9.9 (9.4-12.4) fL Immature Gran % 0.5 (0-4) % Seg Neutrophils % 91.7 % Lymphocytes % 1.7 % Monocytes % 6.0 % Eosinophils % 0.0 % Basophils % 0.1 % Neutrophils # 20.1 H (1.6-8.9) K/mcL Lymphocytes # 0.4 L (0.6-4.6) K/mcL Monocytes # 1.3 (0.0-1.3) K/mcL Eosinophils # 0.0 (0.0-0.6) K/mcL Basophils # 0.0 (0.0-0.2) K/mcL VBG pH (7.32-7.42) pH Units VBG pCO2 (41-51) mmHg VBG pO2 (25-50) mmHg VBG HCO3 (21-27) mEq/L Sodium 132 L (136-145) mEq/L Potassium 3.1 L (3.5-5.1) mEq/L Chloride 91 L (98-107) mEq/L Carbon Dioxide 35 H (23-29) mEq/L BUN 6 L (8-23) mg/dL Creatinine 0.58 L (0.70-1.30) mg/dL Est GFR ( Amer) > 60 (> 60) Est GFR (Non-Af Amer) > 60 (> 60) BUN/Creatinine Ratio 10 (6-26) Glucose 124 H (70-105) mg/dL Calculated Osmolality 273 L (280-300) Lactic Acid 0.8 (0.5-2.2) mmol/L Calcium 8.7 (8.6-10.3) mg/dL Troponin I (< 0.04) ng/mL B-Natriuretic Peptide (Less than 100) pg/mL 11/18/17 11/18/17 11/18/17 Range/Units 21:30 21:30 21:48 WBC (4.3-11.1) K/mcL RBC (4.19-5.50) M/mcL Hgb (12.9-16.9) g/dL Hct (37.5-50.1) % MCV (83.0-100.0) fL MCH (28.0-33.3) pg MCHC (31.6-35.5) g/dL RDW (11.5-14.5) % Plt Count (140-400) K/mcL MPV (9.4-12.4) fL Immature Gran % (0-4) % Seg Neutrophils % % Lymphocytes % % Monocytes % % Eosinophils % % Basophils % % Neutrophils # (1.6-8.9) K/mcL Lymphocytes # (0.6-4.6) K/mcL Monocytes # (0.0-1.3) K/mcL Eosinophils # (0.0-0.6) K/mcL Basophils # (0.0-0.2) K/mcL VBG pH 7.35 (7.32-7.42) pH Units VBG pCO2 64 H (41-51) mmHg VBG pO2 35 (25-50) mmHg VBG HCO3 35 H (21-27) mEq/L Sodium (136-145) mEq/L Potassium (3.5-5.1) mEq/L Chloride (98-107) mEq/L Carbon Dioxide (23-29) mEq/L BUN (8-23) mg/dL Creatinine (0.70-1.30) mg/dL Est GFR ( Amer) (> 60) Est GFR (Non-Af Amer) (> 60) BUN/Creatinine Ratio (6-26) Glucose (70-105) mg/dL Calculated Osmolality (280-300) Lactic Acid (0.5-2.2) mmol/L Calcium (8.6-10.3) mg/dL Troponin I < 0.03 (< 0.04) ng/mL B-Natriuretic Peptide 63 (Less than 100) pg/mL Attestation Statement - Attestation Attestation: I, Abe Rodas MD, personally evaluated this patient and discussed their management with the resident physician. I reviewed the resident's note and agree with the documented findings, medical decision making, and plan of care. 62-year-old male presents to the emergency department for complaint of shortness of breath with wheezing. Patient was just discharged from the hospital 4 days ago after he was admitted for pneumonia requiring endotracheal intubation. He is not on home oxygen. He does have nebulizers at home. Patient is a smoker but states he has not smoked since he was sick last week. He was sent home from the hospital with no antibiotics or steroids. Family reports that since going home he has not gotten any better and has continued to have shortness of breath and wheezing. No definite fever but today has had some chills. Persistent cough. On examination patient is a well-developed thin male in no acute distress. He is alert and oriented. There is no cyanosis or diaphoresis. Breath sounds are markedly decreased bilaterally with scattered bilateral inspiratory and expiratory wheezes. Heart tachycardic and slightly irregular. Abdomen soft and nontender with normal bowel sounds. Labs reviewed. Chest x-ray shows bilateral pneumonia. EKG shows a sinus tach with occasional PAC. Heart rate 114. No definite acute ischemic changes noted. The hospitalist, Dr. Blandon, was consulted and accepted admission of the patient.
[2017-11-18 21:45] LABS: Basophils % 0.1 %; Hematocrit 38.3 % (37.5-50.1); Hemoglobin 12.6 g/dL (12.9-16.9); Immature Granulocytes % 0.5 % (0-4); Lymphocytes # 0.4 K/mcL (0.6-4.6); Lymphocytes % 1.7 %; Mean Corpuscular HGB Conc 32.9 g/dL (31.6-35.5); Mean Corpuscular Hemoglobin 27.3 pg (28.0-33.3); Mean Corpuscular Volume 82.9 fL (83.0-100.0); Mean Platelet Volume 9.9 fL (9.4-12.4); Monocytes # 1.3 K/mcL (0.0-1.3); Neutrophils # 20.1 K/mcL (1.6-8.9); Platelet Count 270 K/mcL (140-400); Red Blood Count 4.62 M/mcL (4.19-5.50); Red Cell Distribution Width 16.2 % (11.5-14.5); Segmented Neutrophils % 91.7 %
[2017-11-18 21:51] LABS: VBG HCO3 35 mEq/L (21-27); VBG PCO2 64 mmHg (41-51); VBG PH 7.35 pH Units (7.32-7.42); VBG PO2 35 mmHg (25-50)
[2017-11-18 22:02] LABS: BUN/Creatinine Ratio 10 (6-26); Blood Urea Nitrogen 6 mg/dL (8-23); Calcium 8.7 mg/dL (8.6-10.3); Carbon Dioxide 35 mEq/L (23-29); Chloride 91 mEq/L (98-107); Glucose 124 mg/dL (70-105); Osmolality,Calculated 273 (280-300); Potassium 3.1 mEq/L (3.5-5.1); Sodium 132 mEq/L (136-145); eGFR For African Americans > 60 (> 60); eGFR For Non-African Americans > 60 (> 60)
[2017-11-18] MEDS ORDERED: 0.9 % Sodium Chloride 1,000 ML IVC ONE (23:10)
[2017-11-19] MEDS ORDERED: Mag Hydrox/Al Hydrox/Simeth 30 ML UDC PO PRN (05:12)
[2017-11-19] MEDS ORDERED: Naloxone 0.4 MG/ML INJ IVP PRN (05:12)
[2017-11-19] MEDS ORDERED: *HR* Promethazine 25 MG/ML VIAL IVP PRN (05:12)
[2017-11-19] MEDS ORDERED: Ondansetron 4 MG/2 ML VIAL IVP PRN (05:12)
[2017-11-19] MEDS ORDERED: *HR* HYDROcodone/Acet 5/325 mg TABLET PO PRN (05:12)
[2017-11-19] MEDS ORDERED: Acetaminophen 325 MG TABLET PO PRN (05:12)
--- NOTE | 2017-11-19 05:22 | Internal Med History&Physical ---
Date of Encounter: 11/19/17 Time of Encounter: 02:00 Assessment and Plan (1) Sepsis Current visit: Yes Status: Acute Admit the pt into Tele he does meet sepsis criteria with leukocytosis, sinus tachycardia and source of as PNA cont IVF Normal LA Blood cx drawn Sputum cx, Resp viral panel sent out on broad spec abx Zosyn + Levaquin .. Vanc x 1 dose given Qualifiers: Qualified Code(s): A41.9 - Sepsis, unspecified organism (2) HCAP (healthcare-associated pneumonia) Current visit: Yes Status: Acute (3) Acute respiratory failure with hypoxia Current visit: Yes Status: Acute He is currently on 4 lit O2 Duoneb SHANDA Started him on high dose IV steroids (4) COPD exacerbation Current visit: No Status: Resolved (5) Tobacco dependence Current visit: Yes Status: Acute counseled to quit on nicotine patch (6) Laryngeal cancer Current visit: Yes Status: Acute Internal Medicine - H&P: HPI Chief complaint: Shortness of breath Admitted From: Emergency Dept Plans for Post Hospital Care: Home History of present illness: Mr. Patrick is a 62 year old male with tobacco abuse, COPD not on home O2 and Laryngeal CA who recently had penumonia got admitted here had a complicated stay with Vent dependent resp failure than d/c home on 11/14/17, now he came back to ER with progressively worsening SOB and weakness from last 2 days. Pt was very hypoxic and required 4 lit O2 now. Denied any CP. He does have cough with expectoration. His CXR showed b/l infiltrates. Past Med Surg Social Fam HX - Past Medical History Medical history: COPD, peripheral artery disease Psychiatric history: no psych history - Social History Smoking Status: Current every day smoker Smokeless Tobacco Status: No Alcohol use: none Drug use: none - Family History Mother History Unknown: Yes Internal Medicine - H&P: Meds Albuterol Neb [Proventil Neb] 2.5 mg IH Q4HR 11/09/17 [History] Aspirin Enteric Coated [Aspirin EC] 81 mg PO DAILY 11/09/17 [History] Cilostazol [Pletal] 100 mg PO BID 11/09/17 [History] Esomeprazole Magnesium [Nexium] 20 mg PO DAILY 11/09/17 [History] Fluticasone/Salmeterol [Advair 250-50 Diskus] 2 puff IH BID 11/09/17 [History] Levothyroxine [Synthroid] 100 mcg PO DAILY 11/09/17 [History] Tiotropium [place] [Spiriva Respimat] 1 puff IH DAILY 11/09/17 [History] 3 Allergy/AdvReac Type Severity Reaction Status Date / Time No Known Allergies Allergy Verified 11/18/17 20:29 All Systems PM: A 10-system review of systems was performed and is negative for pertinent findings except as documented above in the HPI. Review of systems: All the systems are reviewed everything is benign except the systems and symptoms I mentioned in the history of present illness - Constitutional Vitals: Temp Pulse Resp BP Pulse Ox 98.4 F 97 22 147/87 96 11/19/17 00:48 11/19/17 00:48 11/19/17 00:48 11/19/17 00:48 11/19/17 00:48 General appearance: Present: cooperative, mild distress, A&O X 3, answers questions appropriately - Head Head exam: Present: atraumatic, normal inspection - Neck Neck exam general surgery: Present: supple - Respiratory Respiratory exam: Present: decreased breath sounds, respiratory distress (mild) , wheezes (moderate). Absent: rales, rhonchi - Cardiovascular Cardiovascular exam: Present: RRR, +S1, +S2, tachycardia. Absent: systolic murmur - GI/Abdominal GI/Abdominal exam: Present: normal bowel sounds, soft. Absent: rebound, rigid, tenderness - Extremities Exam Extremities exam: Absent: calf tenderness, pedal edema, tenderness - Back Exam Back exam: Absent: CVA tenderness (L), CVA tenderness (R) - Neurological Exam Neurological exam: Present: alert, oriented X3, no focal deficits. Absent: speech deficit - Psychiatric Psychiatric exam: Present: anxious - Skin Skin exam: Absent: rash Internal Med - H&P Results - Labs CBC & Chem 7: 11/18/17 21:30 11/18/17 21:30
[2017-11-19] MEDS ORDERED: 0.9 % Sodium Chloride 1,000 ML IVC SCH (05:30)
[2017-11-19] MEDS: *HR* Enoxaparin 40 MG/0.4 ML SYRINGE SQ SCH (05:31)
[2017-11-19] MEDS: MethylPREDNISolone 40 MG/ML VIAL IVP SCH ×4 (05:31→23:56)
[2017-11-19] MEDS: Ipratropium/Albuterol Neb 3 ML IH SCH ×4 (07:49→20:59)
[2017-11-19] MEDS: Nicotine 21 MG PATCH.TD24 TD SCH (08:51)
--- NOTE | 2017-11-19 18:32 | Electrocardiograph Report ---
[place] [id number] Test Date: 2017-11-18 Pat Name: Eder Patrick Department: 102 Room: 2NE27 Gender: M Canine Deputy: Sarah : 1955 Requested By: Abe Rodas Order Number: [id number] Reading MD: Lesia Lucero Measurements Intervals [place] Rate: 114 P: 69 MD: 174 QRS: 42 QRSD: 93 T: 66 QT: 316 QTc: 384 Interpretive Statements SINUS TACHYCARDIA WITH OCCASIONAL SUPRAVENTRICULAR PREMATURE COMPLEXES MINIMAL ST DEPRESSION [0.025+ mV ST DEPRESSION] ABNORMAL RHYTHM ECG Electronically Signed On 11-19-2017 18:31:21 EST by Lesia Lucero
[2017-11-19] MEDS: Levofloxacin 750 MG/150 ML 750 MG/150 ML BAG IVPB SCH (20:36)
[2017-11-19] MEDS ORDERED: Levofloxacin 500 MG/100 ML 500 MG/100 ML BAG IVPB SCH (21:00)
[2017-11-20] MEDS: Ipratropium/Albuterol Neb 3 ML IH SCH ×7 (00:41→23:59)
[2017-11-20 03:37] LABS: Basophils % 0.1 %; Hematocrit 39.1 % (37.5-50.1); Hemoglobin 12.2 g/dL (12.9-16.9); Immature Granulocytes % 0.6 % (0-4); Lymphocytes % 0.8 %; Mean Corpuscular HGB Conc 31.2 g/dL (31.6-35.5); Mean Corpuscular Hemoglobin 26.7 pg (28.0-33.3); Mean Corpuscular Volume 85.6 fL (83.0-100.0); Mean Platelet Volume 9.4 fL (9.4-12.4); Monocytes # 0.3 K/mcL (0.0-1.3); Monocytes % 1.4 %; Platelet Count 299 K/mcL (140-400); Red Blood Count 4.57 M/mcL (4.19-5.50); Red Cell Distribution Width 16.5 % (11.5-14.5); Segmented Neutrophils % 97.1 %
[2017-11-20 03:49] LABS: Lymphocytes # 0.1 K/mcL (0.6-4.6); Neutrophils # 17.4 K/mcL (1.6-8.9)
[2017-11-20 04:02] LABS: BUN/Creatinine Ratio 19 (6-26); Blood Urea Nitrogen 11 mg/dL (8-23); Calcium 8.8 mg/dL (8.6-10.3); Carbon Dioxide 35 mEq/L (23-29); Chloride 96 mEq/L (98-107); Glucose 165 mg/dL (70-105); Magnesium 1.8 mg/dL (1.6-2.6); Osmolality,Calculated 289 (280-300); Potassium 3.7 mEq/L (3.5-5.1); Sodium 138 mEq/L (136-145); eGFR For African Americans > 60 (> 60); eGFR For Non-African Americans > 60 (> 60)
[2017-11-20 04:17] LABS: Platelet Estimate Normal (Normal); Smudge Cells Present (Not Present)
[2017-11-20] MEDS: *HR* Enoxaparin 40 MG/0.4 ML SYRINGE SQ SCH (05:21)
[2017-11-20] MEDS: MethylPREDNISolone 40 MG/ML VIAL IVP SCH ×3 (05:21→17:08)
[2017-11-20] MEDS: Nicotine 21 MG PATCH.TD24 TD SCH (09:07)
--- NOTE | 2017-11-20 12:00 | Internal Med Progress Note ---
Date of Encounter: 11/20/17 Time of Encounter: 11:55 - Subjective Interval history: The patient's was seen and evaluated at bedside. The patient states that he feels a lot better compared to yesterday. He is currently all 4 L of oxygen for the nasal cannula. He denies any shortness of breath or difficulty breathing at this time. Denies any chest pain, fever, headache, vision changes , abdominal pain, and any weaknesses. - Constitutional Vitals: Temp Pulse Resp BP Pulse Ox 97.6 F 82 16 140/99 98 11/20/17 11:05 11/20/17 11:05 11/20/17 11:24 11/20/17 06:55 11/20/17 11:24 General appearance: Present: cooperative, mild distress, A&O X 3, answers questions appropriately Internal Medicine: Result - Labs CBC & Chem 7: 11/20/17 03:26 11/20/17 03:26 Labs: Short CBC 11/20/17 Range/Units 03:26 WBC 17.9 H (4.3-11.1) K/mcL Hgb 12.2 L (12.9-16.9) g/dL Hct 39.1 (37.5-50.1) % Plt Count 299 (140-400) K/mcL Neutrophils # 17.4 H (1.6-8.9) K/mcL BMP 11/20/17 03:26 Sodium 138 Potassium 3.7 Chloride 96 L Carbon Dioxide 35 H BUN 11 Creatinine 0.59 L Glucose 165 H Calcium 8.8 Consult Discharge Plan - Plan Referrals: Rigo Marte [Primary Care Provider] -
--- NOTE | 2017-11-20 12:09 | Internal Med Progress Note ---
Date of Encounter: 11/20/17 Time of Encounter: 12:06 - Assessment and plan (1) Aspiration pneumonia Current Visit: Yes Status: Acute Assessment and plan: Acute hypoxic respiratory failure secondary to sepsis due to gram-negative pneumonia/aspiration pneumonia present upon admission Barium swallow evaluation ordered for today Continue Levaquin day #2, vancomycin and Zosyn were discontinued Consider switching to Unasyn if aspiration is confirmed Continue oxygen therapy, DuoNeb's, Solu-Medrol Chest x-ray showed bibasilar opacities Qualifiers: Aspiration pneumonia type: unspecified Laterality: bilateral Lung location: lower lobe of lung Qualified Code(s): J69.0 - Pneumonitis due to inhalation of food and vomit (2) Laryngeal cancer Current Visit: Yes Status: Acute Assessment and plan: Follow-up as outpatient (3) Sepsis Current Visit: Yes Status: Acute Qualifiers: Qualified Code(s): A41.9 - Sepsis, unspecified organism (4) Tobacco dependence Current Visit: Yes Status: Acute Assessment and plan: Smoking cessation counseling Nicotine patch (5) Leukocytosis Current Visit: No Status: Acute Qualifiers: Leukocytosis type: unspecified Qualified Code(s): D72.829 - Elevated white blood cell count, unspecified (6) Hyponatremia Current Visit: No Status: Chronic Assessment and plan: Resolved (7) Acute respiratory failure Current Visit: No Status: Resolved Qualifiers: Respiratory failure complication: hypoxia and hypercapnia Qualified Code(s) : J96.01 - Acute respiratory failure with hypoxia; J96.02 - Acute respiratory failure with hypercapnia; J96.02 - Acute respiratory failure with hypercapnia; J96.02 - Acute respiratory failure with hypercapnia (8) COPD exacerbation Current Visit: No Status: Resolved - Subjective Interval history: Feeling short of breath, no chest pain, bringing up phlegm, no fevers, no abdominal pain, no dysuria or diarrhea - Constitutional Vitals: Temp Pulse Resp BP Pulse Ox 97.6 F 82 16 140/99 98 11/20/17 11:05 11/20/17 11:05 11/20/17 11:24 11/20/17 06:55 11/20/17 11:24 General appearance: Present: cooperative, mild distress, A&O X 3, answers questions appropriately - Head Head exam: Present: atraumatic, normocephalic Additional comments: Muffled voice - Eye Eye exam: Present: PERRL, conjuntiva pink, sclera anicteric Pupils: Present: PERRL - Neck Neck exam general surgery: Present: supple, trachea midline. Absent: lymphadenopathy - Respiratory Respiratory exam: Present: CTAB, wheezes (Diffuse wheezing). Absent: accessory muscle use, rales, rhonchi - Cardiovascular Cardiovascular exam: Present: RRR, +S1, +S2. Absent: diastolic murmur, gallop, rubs, systolic murmur - GI/Abdominal GI/Abdominal exam: Present: normal bowel sounds, soft, no peritoneal signs. Absent: distended, tenderness - Extremities Exam Extremities exam: Present: warm, radial pulses palpable and symmetrical. Absent : calf tenderness, cyanotic, pedal edema - Neurological Exam Neurological exam: Present: CN II-XII intact, oriented X3, no focal deficits. Absent: pronater drift, facial droop, speech deficit - Skin Skin exam: Present: dry, intact Internal Medicine: Result - Labs CBC & Chem 7: 11/20/17 03:26 11/20/17 03:26 Labs: Short CBC 11/20/17 Range/Units 03:26 WBC 17.9 H (4.3-11.1) K/mcL Hgb 12.2 L (12.9-16.9) g/dL Hct 39.1 (37.5-50.1) % Plt Count 299 (140-400) K/mcL Neutrophils # 17.4 H (1.6-8.9) K/mcL BMP 11/20/17 03:26 Sodium 138 Potassium 3.7 Chloride 96 L Carbon Dioxide 35 H BUN 11 Creatinine 0.59 L Glucose 165 H Calcium 8.8 Consult Discharge Plan - Plan Referrals: Rigo Marte [Primary Care Provider] -
[2017-11-20] MEDS: Levofloxacin 750 MG/150 ML 750 MG/150 ML BAG IVPB SCH (22:14)
[2017-11-21] MEDS: MethylPREDNISolone 40 MG/ML VIAL IVP SCH ×4 (00:15→17:41)
[2017-11-21] MEDS: Ipratropium/Albuterol Neb 3 ML IH SCH ×6 (03:47→23:25)
[2017-11-21 04:11] LABS: Basophils % 0.1 %; Hematocrit 34.3 % (37.5-50.1); Hemoglobin 11.1 g/dL (12.9-16.9); Immature Granulocytes % 0.6 % (0-4); Lymphocytes # 0.2 K/mcL (0.6-4.6); Lymphocytes % 1.6 %; Mean Corpuscular HGB Conc 32.4 g/dL (31.6-35.5); Mean Corpuscular Hemoglobin 27.1 pg (28.0-33.3); Mean Corpuscular Volume 83.7 fL (83.0-100.0); Mean Platelet Volume 9.6 fL (9.4-12.4); Monocytes # 0.3 K/mcL (0.0-1.3); Monocytes % 2.1 %; Neutrophils # 13.9 K/mcL (1.6-8.9); Platelet Count 276 K/mcL (140-400); Red Cell Distribution Width 16.5 % (11.5-14.5); Segmented Neutrophils % 95.6 %
[2017-11-21 04:41] LABS: BUN/Creatinine Ratio 26 (6-26); Blood Urea Nitrogen 12 mg/dL (8-23); Calcium 8.6 mg/dL (8.6-10.3); Carbon Dioxide 37 mEq/L (23-29); Chloride 97 mEq/L (98-107); Glucose 118 mg/dL (70-105); Osmolality,Calculated 289 (280-300); Potassium 3.9 mEq/L (3.5-5.1); Sodium 139 mEq/L (136-145); eGFR For African Americans > 60 (> 60); eGFR For Non-African Americans > 60 (> 60)
[2017-11-21] MEDS: *HR* Enoxaparin 40 MG/0.4 ML SYRINGE SQ SCH (05:19)
[2017-11-21] MEDS: Nicotine 21 MG PATCH.TD24 TD SCH (10:47)
--- NOTE | 2017-11-21 10:53 | Internal Med Progress Note ---
<Brett Goodwin - Last Filed: 11/21/17 13:29> Date of Encounter: 11/21/17 Time of Encounter: 08:45 - Assessment and plan (1) Aspiration pneumonia Current Visit: Yes Status: Acute Assessment and plan: Acute hypoxic respiratory failure secondary to sepsis due to gram-negative pneumonia/aspiration pneumonia present upon admission. Barium swallow evaluation showed silent aspirations, CARAMEL CUTTER HAND recommended NPO with alternative means of nutrition. Patient initially relutent to PG tube placement, after secoond oponion from his (cancer/throat) specialists he has agreed to move forward with PEG placement. Continue Levaquin day #4, vancomycin and Zosyn were discontinued Consider switching to Unasyn. Continue oxygen therapy, DuoNeb's, Solu-Medrol Chest x-ray showed bibasilar opacities. Maintaining good O2 saturation on room air. Qualifiers: Aspiration pneumonia type: unspecified Laterality: bilateral Lung location: lower lobe of lung Qualified Code(s): J69.0 - Pneumonitis due to inhalation of food and vomit (2) Laryngeal cancer Current Visit: Yes Status: Acute Assessment and plan: Notes currently in remission. Planning to follow up as outpatient with specialist for possible surgical intervention to decrease aspiration risk. (3) Sepsis Current Visit: Yes Status: Acute (4) Tobacco dependence Current Visit: Yes Status: Acute Assessment and plan: Smoking cessation counseling provided. Currently using Nicotine replacement patch (5) Leukocytosis Current Visit: No Status: Acute Assessment and plan: Continues to improve. Qualifiers: Leukocytosis type: unspecified Qualified Code(s): D72.829 - Elevated white blood cell count, unspecified (6) Hyponatremia Current Visit: No Status: Resolved Assessment and plan: Resolved (7) Acute respiratory failure Current Visit: No Status: Resolved Qualifiers: Respiratory failure complication: hypoxia and hypercapnia Qualified Code(s) : J96.01 - Acute respiratory failure with hypoxia; J96.02 - Acute respiratory failure with hypercapnia; J96.02 - Acute respiratory failure with hypercapnia; J96.02 - Acute respiratory failure with hypercapnia (8) COPD exacerbation Current Visit: No Status: Resolved (9) Sleep apnea Current Visit: Yes Status: Chronic Assessment and plan: Patient notes history of positive outpatient sleep study done at the [facility] in the past, however, never received CPAP. Overnight testing for BiPAP/O2 was positive, though pending a repeat ABG for insurance. - Time Spent With Patient 25 - 35 minutes - Subjective Interval history: Patient sitting comfortably in bed, on room oxygen, no acute distress. Initially upset about not having anything to eat, but after talking to his "throat" specialist handling his laryngeal cancer (notes in remission), he has agreed to persue PEG tube placement. - Constitutional Vitals: Temp Pulse Resp BP Pulse Ox 97.9 F 92 22 112/78 93 11/21/17 07:00 11/21/17 07:00 11/21/17 08:12 11/21/17 07:00 11/21/17 08:12 General appearance: Present: cooperative, A&O X 3, no acute distress, answers questions appropriately - Head Head exam: Present: atraumatic, normocephalic - Eye Eye exam: Present: EOMI - Neck Neck exam general surgery: Present: full ROM - Respiratory Respiratory exam: Present: wheezes. Absent: accessory muscle use, rales, rhonchi - Cardiovascular Cardiovascular exam: Present: RRR, +S1, +S2. Absent: diastolic murmur, gallop, rubs, systolic murmur - GI/Abdominal GI/Abdominal exam: Present: normal bowel sounds, soft, no peritoneal signs. Absent: distended, tenderness - Extremities Exam Extremities exam: Absent: cyanotic, pedal edema - Neurological Exam Neurological exam: Present: alert, oriented X3, no focal deficits. Absent: facial droop, speech deficit - Skin Skin exam: Present: dry, intact Internal Medicine: Result - Labs CBC & Chem 7: 11/21/17 03:21 11/21/17 03:21 Labs: Short CBC 11/21/17 Range/Units 03:21 WBC 14.5 H (4.3-11.1) K/mcL Hgb 11.1 L (12.9-16.9) g/dL Hct 34.3 L (37.5-50.1) % Plt Count 276 (140-400) K/mcL Neutrophils # 13.9 H (1.6-8.9) K/mcL BMP 11/21/17 03:21 Sodium 139 Potassium 3.9 Chloride 97 L Carbon Dioxide 37 H BUN 12 Creatinine 0.46 L Glucose 118 H Calcium 8.6 - Impressions Impressions Videofluoroscopic Swallow 11/20/17 08:23 IMPRESSION: Silent aspiration. Please see separate speech pathology report for full discussion of findings and recommendations. D/ / Jose Lozoya MD / Jose Lozoya MD Interpreting Provider: Jose Lozoya MD Consult Discharge Plan - Plan Referrals: Rigo Marte [Primary Care Provider] - <Jose Corbin H - Last Filed: 11/21/17 14:19> Date of Encounter: 11/21/17 - Assessment and plan (1) Aspiration pneumonia Current Visit: Yes Status: Acute Qualifiers: Qualified Code(s): J69.0 - Pneumonitis due to inhalation of food and vomit (2) Laryngeal cancer Current Visit: Yes Status: Acute (3) Sepsis Current Visit: Yes Status: Acute (4) Tobacco dependence Current Visit: Yes Status: Acute (5) Leukocytosis Current Visit: No Status: Acute Qualifiers: Qualified Code(s): D72.829 - Elevated white blood cell count, unspecified (6) Hyponatremia Current Visit: No Status: Resolved (7) Acute respiratory failure Current Visit: No Status: Resolved Qualifiers: Qualified Code(s): J96.01 - Acute respiratory failure with hypoxia; J96.02 - Acute respiratory failure with hypercapnia; J96.02 - Acute respiratory failure with hypercapnia; J96.02 - Acute respiratory failure with hypercapnia (8) COPD exacerbation Current Visit: No Status: Resolved - Constitutional Vitals: Temp Pulse Resp BP Pulse Ox 97.9 F 72 16 141/88 95 11/21/17 07:00 11/21/17 13:07 11/21/17 13:07 11/21/17 13:07 11/21/17 13:07 Internal Medicine: Result - Labs CBC & Chem 7: 11/21/17 03:21 11/21/17 03:21 Labs: Short CBC 11/21/17 Range/Units 03:21 WBC 14.5 H (4.3-11.1) K/mcL Hgb 11.1 L (12.9-16.9) g/dL Hct 34.3 L (37.5-50.1) % Plt Count 276 (140-400) K/mcL Neutrophils # 13.9 H (1.6-8.9) K/mcL BMP 11/21/17 03:21 Sodium 139 Potassium 3.9 Chloride 97 L Carbon Dioxide 37 H BUN 12 Creatinine 0.46 L Glucose 118 H Calcium 8.6 - ABG Interpretation ABG results: ABG ABG pH 7.47 pH Units (7.32-7.45) H 11/21/17 11:58 ABG pCO2 54 mmHg (35-45) H 11/21/17 11:58 ABG pO2 64 mmHg (85-104) L 11/21/17 11:58 ABG O2 Saturation 93 % (95-98) L 11/21/17 11:58 - Impressions Impressions Videofluoroscopic Swallow 11/20/17 08:23 IMPRESSION: Silent aspiration. Please see separate speech pathology report for full discussion of findings and recommendations. D/ / Jose Lozoya MD / Jose Lozoya MD Interpreting Provider: Jose Lozoya MD - Attending Attestation Acute hypoxic respiratory failure secondary to sepsis due to gram-negative pneumonia/aspiration pneumonia present upon admission PEG tube placed, may restart tube feeds later tonight after 6 hours of having the procedure done Continue Levaquin, consider discharging tomorrow Qualified for BiPAP I examined this patient and my medical decision-making was reviewed with the Resident Physician. I agree with the documented findings, disposition and treatment plan as described except to the extent set forth below.
[2017-11-21 12:00] LABS: ABG Base Excess 14 mEq/L (-2 to 3); ABG HCO3 39 mEq/L (21-27); ABG Oxygen Saturation 93 % (95-98); ABG PCO2 54 mmHg (35-45); ABG PH 7.47 pH Units (7.32-7.45); ABG PO2 64 mmHg (85-104); ABG TCO2 41 mEq/L (20-26)
[2017-11-21] MEDS ORDERED: Lidocaine/EPI 1:200k 1% PF 10 ML VIAL ONE (12:32)
--- NOTE | 2017-11-21 13:07 | Anesthesia Evaluation PreOp ---
Date of Encounter: 11/21/17 Time of Encounter: 13:05 - Past History Planned Operation: PEG Cardiac History: HTN, Hyperlipidemia, Other (PAD) Pulmonary History: Former smoker, COPD, Other (pneumonia) Other Medical History: Thyroid (hypothyroid), Other (laryngeal ca) Anesthesia History: No Prior Anesthetic Complications, Past Anesthesia Alcohol Use: none Drug use: none Medications and Allergies Albuterol Neb [Proventil Neb] 2.5 mg IH Q4HR 11/09/17 [History] Aspirin Enteric Coated [Aspirin EC] 81 mg PO DAILY 11/09/17 [History] Cilostazol [Pletal] 100 mg PO BID 11/09/17 [History] Esomeprazole Magnesium [Nexium] 20 mg PO DAILY 11/09/17 [History] Fluticasone/Salmeterol [Advair 250-50 Diskus] 2 puff IH BID 11/09/17 [History] Levothyroxine [Synthroid] 100 mcg PO DAILY 11/09/17 [History] Tiotropium [place] [Spiriva Respimat] 1 puff IH DAILY 11/09/17 [History] 3 Allergy/AdvReac Type Severity Reaction Status Date / Time No Known Allergies Allergy Verified 11/18/17 20:29 - Meds/Allergy Pre-op Review Medications Reviewed: Yes Allergies Reviewed: Yes Beta Blockers on Current Med List: No Anesthesia Results - Labs 11/21/17 03:21 11/21/17 03:21 - Imaging EKG: report reviewed ( Interpretive Statements SINUS TACHYCARDIA WITH OCCASIONAL SUPRAVENTRICULAR PREMATURE COMPLEXES MINIMAL ST DEPRESSION [0.025+ mV ST DEPRESSION] ABNORMAL RHYTHM ECG Electronically Signed On 11-19-2017 18:31: 21 EST by Lesia Lucero) Anesthesia Exam Vital Signs/O2 Sat, Most Current Temp Pulse Resp BP Pulse Ox 97.9 F 72 16 141/88 95 11/21/17 07:00 11/21/17 13:07 11/21/17 13:07 11/21/17 13:07 11/21/17 13:07 Height: 1.75m Weight: 59kg NPO (# of Hours): >8 - HEENT Pupil (Motor): Pupils equal, EOMI Mallampati: II Teeth: Edentulous Oral Opening: Greater than 3 - DULSER LOC: Oriented DULSER Motor: Normal RUE, Normal LUE, Normal RLE, Normal LLE, Normal Face DULSER Sensory: Normal: RUE, LUE, RLE, LLE, Face - Cardiac Rhythm: Regular - Pulmonary Breath Sounds: bilateral Clear Respiratory Effort: Symmetrical Anesthesia Assess/Plan ASA Score: 3 Modified [place] Scale for Level of Consciousness: Cooperative, oriented, and tranquil Anesthetic Plan: General, MAC Monitoring Plan: Standard Monitors Recovery Plan: PACU
[2017-11-21] MEDS ORDERED: ceFAZolin 1,000 MG in Water for inj. (sterile) 20 ML 10 ML IVP ONE ×2 (13:25→14:00)
[2017-11-21] MEDS ORDERED: *HR* Propofol 200 MG/20 ML VIAL IVP ONE (13:28)
--- NOTE | 2017-11-21 14:15 | Gastroenterology Consult Note ---
<Augustina Alcantar M - Last Filed: 11/21/17 14:25> Date of Encounter: 11/21/17 Time of Encounter: 12:00 - Assessment and plan (1) Dysphagia Current Visit: Yes Status: Acute Assessment and plan: Pt has history of laryngeal cancer. He has recurrent aspiration pneumonia, needs peg for alternative source of nutrition. Will proceed with EGD and peg today. Risks and benefits explained to pt and , they verbalize understanding and are in agreement with the treatment plan. Qualifiers: Dysphagia type: other dysphagia Qualified Code(s): R13.19 - Other dysphagia (2) Laryngeal cancer Current Visit: Yes Status: Acute Assessment and plan: Oncology at [facility] (3) Aspiration pneumonia Current Visit: Yes Status: Acute Assessment and plan: pt is improving, Qualifiers: Aspiration pneumonia type: unspecified Laterality: bilateral Lung location: lower lobe of lung Qualified Code(s): J69.0 - Pneumonitis due to inhalation of food and vomit - Time Spent With Patient Total time spent is greater than 50% in coordination of care (as documented) at patient's floor/unit and/or counseling patient: GI History of Present Illness - Data of Consult Patient: new to practice Consult date: 11/21/17 Requesting Physician: Jose Corbin - Consult Narrative Reason for consult: dysphagia, peg tube placement History of present illness: Mr. Patrick is a 62 year old male with a history of laryngeal cancer, he is status post radiation in 2013 and states he has been in remission. He states he had a peg tube for a short time but has since been removed. He presents with pneumonia. He has been hospitalized twice since September with pneumonia and his says hes been sick since June with respiratory illnesses and has been on multiple rounds of antibiotics and steroids. He reports choking, coughing, and feeling like food gets stuck on occasion. He deniea any nausea, vomiting, abdominal pain, diarrhea or constipation. He states he is on bloodthinners at home PAD. He denies coronary stents, pacemaker or defibrillator. He denies colonoscopy, EGD in 2013. He denies NSAIDS. He is followed by oncology at [facility]. Past Med Surg Social Fam HX - Past Medical History Medical history: COPD, peripheral artery disease Psychiatric history: no psych history - Social History Smoking Status: Current every day smoker Smokeless Tobacco Status: No Alcohol use: none Drug use: none - Family History Mother History Unknown: Yes Review of Systems: GI: as per [place] GENERAL: denies fever, has some chills EYES: denies yellow discoloration ENT: see HPI, chronic hoarseness CARDIO: denies chest pain, palpitations RESP: Shortness of breath with exertion : denies change in color of urine NEURO: weakness HEME: Denies any bruising MS: chronic back and joint pain DERM: denies rash or itching PSYCH: Denies history of anxiety or depression - Constitutional Vitals: Temp Pulse Resp BP Pulse Ox 97.9 F 72 16 141/88 95 11/21/17 07:00 11/21/17 13:07 11/21/17 13:07 11/21/17 13:07 11/21/17 13:07 Exam: CONSTITUTIONAL:~alert, no acute distress.~HEAD:~normocephalic.~EYES:~no jaundice.~NECK:~no obvious swelling~HEART:~regular rate and rhythm, no murmurs.~ LUNGS:~bilateral fair air entry.~ABDOMEN:~non distended, soft, non tander, no masses palpable, no organomegaly, peg tube scar noted to left upper abdomen.~ RECTAL EXAM:~Deferred.~EXTREMITIES:~no clubbing, cyanosis or edema.~SKIN:~no stigmata of chronic liver disease.~NEUROLOGIC:~no obvious focal defect.~~~~ Results - Labs CBC & Chem 7: 11/21/17 03:21 11/21/17 03:21 Labs: Last Result Calcium 8.6 mg/dL (8.6-10.3) 11/21/17 03:21 Troponin I < 0.03 ng/mL (< 0.04) 11/18/17 21:30 Entire Visit Hgb 11.1 g/dL (12.9-16.9) L 11/21/17 03:21 Hct 34.3 % (37.5-50.1) L 11/21/17 03:21 - ABG ABG results: ABG ABG pH 7.47 pH Units (7.32-7.45) H 11/21/17 11:58 ABG pCO2 54 mmHg (35-45) H 11/21/17 11:58 ABG pO2 64 mmHg (85-104) L 11/21/17 11:58 ABG O2 Saturation 93 % (95-98) L 11/21/17 11:58 - Impressions Impressions Videofluoroscopic Swallow 11/20/17 08:23 IMPRESSION: Silent aspiration. Please see separate speech pathology report for full discussion of findings and recommendations. D/ / Jose Lozoya MD / Jose Lozoya MD Interpreting Provider: Jose Lozoya MD Consult Discharge Plan - Plan Referrals: Rigo Marte [Primary Care Provider] - <Dom Link - Last Filed: 11/21/17 21:23> Date of Encounter: 11/21/17 Time of Encounter: 13:00 - Time Spent With Patient Total time spent is greater than 50% in coordination of care (as documented) at patient's floor/unit and/or counseling patient: GI History of Present Illness - Data of Consult Requesting Physician: Jose Corbin - Consult Narrative History of present illness: Mr. Patrick is a 62 year old male - Constitutional Vitals: Temp Pulse Resp BP Pulse Ox 97.8 F 74 21 171/102 97 11/21/17 19:27 11/21/17 19:27 11/21/17 20:18 11/21/17 19:27 11/21/17 20:20 Results - Labs CBC & Chem 7: 11/21/17 03:21 11/21/17 03:21 Labs: Last Result Calcium 8.6 mg/dL (8.6-10.3) 11/21/17 03:21 Troponin I < 0.03 ng/mL (< 0.04) 11/18/17 21:30 Entire Visit Hgb 11.1 g/dL (12.9-16.9) L 11/21/17 03:21 Hct 34.3 % (37.5-50.1) L 11/21/17 03:21 - ABG ABG results: ABG ABG pH 7.47 pH Units (7.32-7.45) H 11/21/17 11:58 ABG pCO2 54 mmHg (35-45) H 11/21/17 11:58 ABG pO2 64 mmHg (85-104) L 11/21/17 11:58 ABG O2 Saturation 93 % (95-98) L 11/21/17 11:58 - Attending Attestation I examined this patient and my medical decision-making was reviewed with the WORKERS COMPENSATION COORDINATOR. I agree with the documented findings, disposition and treatment plan as described except to the extent set forth below.
--- NOTE | 2017-11-21 15:32 | Anesthesia Evaluation Post Op ---
Date of Encounter: 11/21/17 Time of Encounter: 13:10 - Vital Signs Vital Signs: Vital Signs/O2 Sat/Glucose, Most Current Pulse Resp BP Pulse Ox 11/21/17 13:07 72 16 141/88 95 11/21/17 11:48 16 94 - Lungs Lungs: Clear Ascult./Percussion - Airway Airway: Non-obstructed - Cardiovascular Regular Rate - Mental Status Mental Status: Alert & Oriented, Answers Appropriately - Pain Pain Scale: 0 Pain Scale used: Numeric (1 - 10) - Nausea Vomiting Nausea Vomiting: Not Present - Hydration Hydration: Tolerates oral liquids, Able to void - Discharge PostOp Status: Transfer Patient to floor Anes Supervising Prov Stmt: Pt seen/evaluated, VSS and pt has met criteria for discharge to floor. - MD Margie
[2017-11-21] MEDS: 0.9 % Sodium Chloride 1,000 ML IVC SCH (16:10)
[2017-11-21] MEDS: Levofloxacin 750 MG/150 ML 750 MG/150 ML BAG IVPB SCH (20:04)
[2017-11-22] MEDS: MethylPREDNISolone 40 MG/ML VIAL IVP SCH ×3 (00:35→12:20)
[2017-11-22] MEDS: 0.9 % Sodium Chloride 1,000 ML IVC SCH (03:52)
[2017-11-22] MEDS: Ipratropium/Albuterol Neb 3 ML IH SCH ×4 (04:20→14:55)
[2017-11-22] MEDS: *HR* Enoxaparin 40 MG/0.4 ML SYRINGE SQ SCH (05:41)
[2017-11-22 06:04] LABS: Hemoglobin 12.1 g/dL (12.9-16.9); Immature Granulocytes % 0.5 % (0-4); Lymphocytes # 0.2 K/mcL (0.6-4.6); Lymphocytes % 1.4 %; Mean Corpuscular Hemoglobin 26.4 pg (28.0-33.3); Mean Platelet Volume 9.3 fL (9.4-12.4); Monocytes # 0.3 K/mcL (0.0-1.3); Monocytes % 1.9 %; Platelet Count 279 K/mcL (140-400); Red Blood Count 4.59 M/mcL (4.19-5.50); Red Cell Distribution Width 16.7 % (11.5-14.5); Segmented Neutrophils % 96.2 %
[2017-11-22 06:29] LABS: BUN/Creatinine Ratio 31 (6-26); Blood Urea Nitrogen 15 mg/dL (8-23); Calcium 8.6 mg/dL (8.6-10.3); Carbon Dioxide 36 mEq/L (23-29); Chloride 97 mEq/L (98-107); Glucose 109 mg/dL (70-105); Osmolality,Calculated 289 (280-300); Potassium 3.9 mEq/L (3.5-5.1); Sodium 139 mEq/L (136-145); eGFR For African Americans > 60 (> 60); eGFR For Non-African Americans > 60 (> 60)
[2017-11-22 06:49] LABS: Platelet Estimate Normal (Normal)
[2017-11-22 07:07] VITALS: BP 142/84
--- NOTE | 2017-11-22 09:23 | Discharge Summary ---
<Brett Goodwin - Last Filed: 11/22/17 11:11> Date of Encounter: 11/22/17 Time of Encounter: 09:35 - Discharge Diagnosis (1) Aspiration pneumonia Priority: Primary Status: Acute Qualifiers: Aspiration pneumonia type: unspecified Laterality: bilateral Lung location: lower lobe of lung Qualified Code(s): J69.0 - Pneumonitis due to inhalation of food and vomit (2) Laryngeal cancer Priority: Secondary Status: Chronic (3) Sepsis Priority: Secondary Status: Acute (4) Tobacco dependence Priority: Secondary Status: Chronic (5) Leukocytosis Priority: Secondary Status: Acute Qualifiers: Leukocytosis type: unspecified Qualified Code(s): D72.829 - Elevated white blood cell count, unspecified (6) Hyponatremia Priority: Secondary Status: Resolved (7) Acute respiratory failure Priority: Secondary Status: Resolved Qualifiers: Respiratory failure complication: hypoxia and hypercapnia Qualified Code(s) : J96.01 - Acute respiratory failure with hypoxia; J96.02 - Acute respiratory failure with hypercapnia; J96.02 - Acute respiratory failure with hypercapnia; J96.02 - Acute respiratory failure with hypercapnia (8) COPD exacerbation Priority: Secondary Status: Resolved - Discharge Medications Prescriptions: levoFLOXacin [Levaquin] 750 mg PO DAILY #5 tablet Nicotine Patch [Nicoderm] 21 mg TD DAILY #30 patch.td24 predniSONE [PredniSONE] See Taper PO DAILY #30 tablet Home Medications: Albuterol Neb [Proventil Neb] 2.5 mg IH Q4HR 11/09/17 [History] Aspirin Enteric Coated [Aspirin EC] 81 mg PO DAILY 11/09/17 [History] Cilostazol [Pletal] 100 mg PO BID 11/09/17 [History] Esomeprazole Magnesium [Nexium] 20 mg PO DAILY 11/09/17 [History] Fluticasone/Salmeterol [Advair 250-50 Diskus] 2 puff IH BID 11/09/17 [History] Levothyroxine [Synthroid] 100 mcg PO DAILY 11/09/17 [History] Tiotropium [place] [Spiriva Respimat] 1 puff IH DAILY 11/09/17 [History] Nicotine Patch [Nicoderm] 21 mg TD DAILY #30 patch.td24 11/22/17 [Rx] levoFLOXacin [Levaquin] 750 mg PO DAILY #5 tablet 11/22/17 [Rx] predniSONE [PredniSONE] See Taper PO DAILY #30 tablet 11/22/17 [Rx] Allergies/Adverse Reactions: 3 Allergy/AdvReac Type Severity Reaction Status Date / Time No Known Allergies Allergy Verified 11/18/17 20:29 Date of admission: 11/19/17 05:34 Primary care physician: Rigo Marte Consults: 11/19/17 17:18 Consult to Speech Therapy [CONS] Routine Comment: Evaluate, develop and implement POC Reason for Consult: Hx of laryngeal cancer, hx of choking, current pneumonia , concern for aspiration. Call Completed: No 11/20/17 14:54 Consult to Respiratory Therapy [CONS] Routine Reason for Consult: BIPAP qualification Call Completed: No 11/20/17 15:29 consult to exercise physiologist [Consult to Nutrition] [CONS] Routine Comment: alternative means of nutrition d/t dysphagia Consulting Provider: NUTRITION Reason for Dietary Consult: Other 11/21/17 10:35 Consult to Gastroenterology [CONS] Routine Consulting Provider: Gastroenterology Jennifer Reason for Consult: possible PEG placement for recurrent aspiration pneumonia , hx laryngeal cancer Time Notified: 10:37 Call Completed: Yes 11/21/17 15:21 Consult to Nutrition [CONS] Routine Comment: Consulting Provider: NUTRITION Reason for Dietary Consult: Tube Feed Start & Manage Discharging clinician: Jose Corbin Anticipated date of discharge: 11/22/17 - Patient Status Disposition: Home, Self-Care Condition: Fair Functional capacity at discharge: independent ambulation Overall status at discharge: patient is progressing back to baseline - Discharge Instructions Instructions: Prednisone (By mouth), Nicotine (Absorbed through the skin), Levofloxacin (By mouth), Acute Respiratory Distress Syndrome (DC), Chronic Obstructive Pulmonary Disease (DC), Sepsis (DC), Chronic Dysphagia (DC), Pneumonia (DC), Cigarette Smoking and Your Health, Psychological Stress Evaluator (GEN), Sleep Apnea Syndrome, Psychological Stress Evaluator (GEN) Follow Up With: Rigo Marte [Primary Care Provider] - Additional Instructions: Wear BiPAP at night, plan to follow up as outpatient with pulmonology for hx of positive sleep study, not on CPAP. Plan to follow up with [facility] care [facility] ([facility] or [facility]) for follow up and continuation of tube feeds. Follow up with throat surgeon to discuss aspiration risk reduction. Tube feeds: Jevity 1.5 --6 cans per day, bolus via PEG. Flush PEG with 60ml before and after each bolus. Hold feed for oral medications. Plan for 5 more days of levaquin, and steroid taper. May crush tablets if too large ;may open and sprinkle nexium tablet; may need non-coated asipirn for crushing. Flush tube before and after medication. - Diet and Activity Activity: increase activity as tolerated Diet: other (tube feeding to reduce risk of aspiration) Interval History: Patient in no acute distress today, able to complete 6 min walk test with hypoxia. Ambulating independently in the halls. Tolerating tube feeds well; garcia had tube feeds in the past and states he is comfortable with using this. Denies pain or leakage around tube site. Hospital course: Mr. Patrick is a 62 year old male admitted for recurrent aspiration pneumonia. Hx of tobacco abuse, COPD not on home O2 and Laryngeal CA-remission. Patient recently had pneumonia was admitted here, stay complicated with Vent dependent resp failure than d/c home on 11/14/17, returned to ED on 2 days later with with progressively worsening SOB and weakness. Pt hypoxic and required 4 lit O2 now, CXR showed b/l infiltrates, positive overnight bipap qualification. Started on vancomycin, zosyn, levaquin- continue on only levaquin and showing clinical improvement. Concern for aspiration pneumonia, Barium swallow evaluation showed silent aspirations, VC++ DEVELOPER recommended NPO with alternative means of nutrition. Patient agreed to PEG tube placement. Currently tolerating feeds while, respiratory status stable. Able to continue therapy at home. Plan for discharge today. - Time Spent with Patient Total time spent providing and/or coordinating discharge services: Greater than 30 minutes (40 mins) - Constitutional Vitals: Temp Pulse Resp BP Pulse Ox 97.8 F 86 18 142/84 96 11/22/17 04:59 11/22/17 07:00 11/22/17 07:00 11/22/17 07:00 11/22/17 07:00 General appearance: Present: cooperative, A&O X 3, no acute distress, answers questions appropriately - Head Head exam: Present: atraumatic, normocephalic - Eye Eye exam: Present: EOMI - Neck Neck exam general surgery: Present: full ROM - Respiratory Respiratory exam: Present: decreased breath sounds, CTAB. Absent: accessory muscle use, rales, rhonchi, wheezes - Cardiovascular Cardiovascular exam: Present: RRR, +S1, +S2. Absent: diastolic murmur, gallop, rubs, systolic murmur - GI/Abdominal GI/Abdominal exam: Present: soft, no peritoneal signs. Absent: distended, tenderness - Extremities Exam Extremities exam: Present: warm. Absent: calf tenderness, cyanotic, pedal edema - Neurological Exam Neurological exam: Present: alert, oriented X3, no focal deficits. Absent: facial droop, speech deficit - Skin Skin exam: Present: dry, intact <Jose Corbin H - Last Filed: 11/22/17 13:04> Date of Encounter: 11/22/17 - Discharge Diagnosis (1) Aspiration pneumonia Status: Acute Qualifiers: Aspiration pneumonia type: unspecified Laterality: bilateral Lung location: lower lobe of lung Qualified Code(s): J69.0 - Pneumonitis due to inhalation of food and vomit (2) Laryngeal cancer Status: Chronic (3) Sepsis Status: Acute (4) Tobacco dependence Status: Chronic (5) Leukocytosis Status: Acute Qualifiers: Leukocytosis type: unspecified Qualified Code(s): D72.829 - Elevated white blood cell count, unspecified (6) Hyponatremia Status: Resolved (7) Acute respiratory failure Status: Resolved Qualifiers: Respiratory failure complication: hypoxia and hypercapnia Qualified Code(s) : J96.01 - Acute respiratory failure with hypoxia; J96.02 - Acute respiratory failure with hypercapnia; J96.02 - Acute respiratory failure with hypercapnia; J96.02 - Acute respiratory failure with hypercapnia (8) COPD exacerbation Status: Resolved Date of admission: 11/19/17 05:34 Primary care physician: Rigo Marte Consults: 11/19/17 17:18 Consult to Speech Therapy [CONS] Routine Comment: Evaluate, develop and implement POC Reason for Consult: Hx of laryngeal cancer, hx of choking, current pneumonia , concern for aspiration. Call Completed: No 11/20/17 14:54 Consult to Respiratory Therapy [CONS] Routine Reason for Consult: BIPAP qualification Call Completed: No 11/20/17 15:29 consult to exercise physiologist [Consult to Nutrition] [CONS] Routine Comment: alternative means of nutrition d/t dysphagia Consulting Provider: NUTRITION Reason for Dietary Consult: Other 11/21/17 10:35 Consult to Gastroenterology [CONS] Routine Consulting Provider: Gastroenterology Jennifer Reason for Consult: possible PEG placement for recurrent aspiration pneumonia , hx laryngeal cancer Time Notified: 10:37 Call Completed: Yes 11/21/17 15:21 Consult to Nutrition [CONS] Routine Comment: Consulting Provider: NUTRITION Reason for Dietary Consult: Tube Feed Start & Manage Hospital course: Mr. Patrick is a 62 year old male - Time Spent with Patient Total time spent providing and/or coordinating discharge services: - Constitutional Vitals: Temp Pulse Resp BP Pulse Ox 97.8 F 86 16 142/84 98 11/22/17 04:59 11/22/17 07:00 11/22/17 12:03 11/22/17 07:00 11/22/17 12:03 - Attending Attestation Acute hypoxic respiratory failure secondary to sepsis due to gram-negative pneumonia/aspiration pneumonia present upon admission PEG tube placed Continue Levaquin Qualified for BiPAP Time spent : 40 min I examined this patient and my medical decision-making was reviewed with the Resident Physician. I agree with the documented findings, disposition and treatment plan as described except to the extent set forth below.
[2017-11-22] MEDS: Nicotine 21 MG PATCH.TD24 TD SCH (10:01)
--- NOTE | 2017-11-22 13:08 | Physician Discharge Referral ---
<Brett Goodwin - Last Filed: 11/22/17 13:06> Home Health/Hosp Referral Info Transfer to: Home Health Provider in Charge Post Discharge: PCP - Diagnosis (1) Aspiration pneumonia Priority: Primary (Acute hypoxic respiratory failure secondary to sepsis due to gram-negative pneumonia/aspiration pneumonia present upon admission) Status: Acute (2) Laryngeal cancer Priority: Secondary Status: Chronic (3) Sepsis Priority: Secondary Status: Acute (4) Tobacco dependence Priority: Secondary Status: Chronic (5) Leukocytosis Priority: Secondary Status: Acute (6) Hyponatremia Priority: Secondary Status: Resolved (7) Acute respiratory failure Priority: Secondary Status: Resolved (8) COPD exacerbation Priority: Secondary Status: Resolved - Respiratory Orders Other (bipap at night) Smoking Cessation: Smoking cessation has been advised. For more information, call the [place] Tobacco Quit Line at 4-098-DFAH-NOW. - Diet/Nutrition Diet/Nutrition: List: No food by mouth. Tube feeds: Jevity 1.5 --6 cans per day, bolus via PEG. Flush PEG with 60ml before and after each bolus. Hold feed for oral medications. Plan for 5 more days of levaquin, and steroid taper. May crush tablets if too large ;may open and sprinkle nexium tablet; may need non-coated asipirn for crushing. Flush tube before and after medication. - Activity Activity Orders: Up ad jasmin, Ambulate - Services Needed Following services are medically necessary services: Nursing, Physical Therapy, Occupational Therapy, Speech Therapy - Transfer Medications Prescriptions: levoFLOXacin [Levaquin] 750 mg PO DAILY #5 tablet Nicotine Patch [Nicoderm] 21 mg TD DAILY #30 patch.td24 predniSONE [PredniSONE] See Taper PO DAILY #30 tablet Home Medications: Albuterol Neb [Proventil Neb] 2.5 mg IH Q4HR 11/09/17 [History] Aspirin Enteric Coated [Aspirin EC] 81 mg PO DAILY 11/09/17 [History] Cilostazol [Pletal] 100 mg PO BID 11/09/17 [History] Esomeprazole Magnesium [Nexium] 20 mg PO DAILY 11/09/17 [History] Fluticasone/Salmeterol [Advair 250-50 Diskus] 2 puff IH BID 11/09/17 [History] Levothyroxine [Synthroid] 100 mcg PO DAILY 11/09/17 [History] Tiotropium [place] [Spiriva Respimat] 1 puff IH DAILY 11/09/17 [History] Nicotine Patch [Nicoderm] 21 mg TD DAILY #30 patch.td24 11/22/17 [Rx] levoFLOXacin [Levaquin] 750 mg PO DAILY #5 tablet 11/22/17 [Rx] predniSONE [PredniSONE] See Taper PO DAILY #30 tablet 11/22/17 [Rx] Allergies/Adverse Reactions: 3 Allergy/AdvReac Type Severity Reaction Status Date / Time No Known Allergies Allergy Verified 11/18/17 20:29 Certification: Further, I certify that my clinical findings support that this patient is homebound (i.e. absences from home require considerable and taxing effort and are for medical reasons or congregational services or infrequently or short duration when for other reasons) because: Homebound Reason: Leaving home requires considerable and taxing effort due to condition, Severity of cardiac or pulmonary status limits activity tolerance Attestation: My signature below is to certify that this patient is under my care and that I, or nurse practitioner, or a physician's occupational therapist assistants working with me, has a face-to -face encounter with this patient. <Jose Corbin - Last Filed: 11/22/17 13:45> - Diagnosis (1) Aspiration pneumonia Status: Acute (2) Laryngeal cancer Status: Chronic (3) Sepsis Status: Acute (4) Tobacco dependence Status: Chronic (5) Leukocytosis Status: Acute (6) Hyponatremia Status: Resolved (7) Acute respiratory failure Status: Resolved (8) COPD exacerbation Status: Resolved - Respiratory Orders Smoking Cessation: Smoking cessation has been advised. For more information, call the [place] Tobacco Quit Line at 3-333-KVVY-NOW. Certification: Further, I certify that my clinical findings support that this patient is homebound (i.e. absences from home require considerable and taxing effort and are for medical reasons or congregational services or infrequently or short duration when for other reasons) because: Attestation: My signature below is to certify that this patient is under my care and that I, or nurse practitioner, or a physician's occupational therapist assistants working with me, has a face-to -face encounter with this patient.
== END 2017-11-22 17:46 | disposition home or self-care (01) | DRG 871 ==
LOC: EMEROO 20:19 → 2NENU 20:19 → SUATTDRO 11-19 05:34
PROVIDERS: ADMIT Internal Medicine; ATTEND Internal Medicine